=== PATIENT | male | born 1950 | race Caucasian/White ===

== ENCOUNTER 2021-07-01 14:18 | Inpatient (IN) | payer BC, MEDICARE ==
[2021-07-01] MEDS ORDERED: SODIUM CHLORIDE 0.9% 1,000 ML IV STA (14:50)
[2021-07-01 14:51] LABS: Glucose,Whole Blood 93 mg/dL (75-99)
--- NOTE | 2021-07-01 14:57 | ED ---
General Adult HPI - General Chief complaint: Neuro Symptoms/Deficit Stated complaint: Possible Stroke, Right Side and facial numbness Time Seen by Provider: 07/01/21 14:45 Source: patient, family, RN notes reviewed, old records reviewed Mode of arrival: wheelchair Limitations: no limitations - History of Present Illness Initial comments: This is a 70-year-old male who presents emergency Department with the complaint of right sided numbness in his arm and his leg patient states he also had some numbness in the left leg. Patient states the symptoms of almost completely resolved and he still feels as though the sensation in his right leg is a little off but he can feel all the light touch or painful stimuli. Patient denies any weakness. Patient denies any headache patient denies any visual disturbance. Patient denies any slurred speech. states he does not have any facial droop. Patient states symptoms started about 2:00 right after he got them on the lawn. Patient denies any recent fever chills or cough. Patient chest pain or palpitations. Patient denies any difficulty breathing first breath. - Related Data Home Medications Medication Instructions Recorded Confirmed No Known Home Medications 07/01/21 07/01/21 Allergies Allergy/AdvReac Type Severity Reaction Status Date / Time venom-honey bee Allergy Anaphylaxis Verified 07/01/21 17:01 [bee venom (honey bee)] Review of Systems ROS Statement: Those systems with pertinent positive or pertinent negative responses have been documented in the HPI. ROS Other: All systems not noted in ROS Statement are negative. Past Medical History Past Medical History: CVA/TIA Additional Past Medical History / Comment(s): kidney stones. TIA years ago History of Any Multi-Drug Resistant Organisms: None Reported Past Surgical History: Orthopedic Surgery Additional Past Surgical History / Comment(s): lola knee arthrosc.09-27-15 OPEN ILEOCOLECTOMY Past Anesthesia/Blood Transfusion Reactions: Motion Sickness Past Psychological History: No Psychological Hx Reported Smoking Status: Never smoker Past Alcohol Use History: Occasional Past Drug Use History: None Reported - Past Family History Mother Family Medical History: Cancer Additional Family Medical History / Comment(s): BREAST CANCER Father Family Medical History: Myocardial Infarction ([place]) Additional Family Medical History / Comment(s): MULTIPLE GA'S BEFORE AT AGE 40 General Exam - General Exam Comments Initial Comments: GENERAL: Patient is well-developed and well-nourished. Patient is nontoxic and well- hydrated and is in no acute distress. ENT: Neck is soft and supple. No significant lymphadenopathy is noted. Oropharynx is clear. Moist mucous membranes. Neck has full range of motion without e liciting any pain. EYES: The sclera were anicteric and conjunctiva were pink and moist. Extraocular movements were intact and pupils were equal round and reactive to light. Eyelids were unremarkable. PULMONARY: Unlabored respirations. Good breath sounds bilaterally. No audible rales rhonchi or wheezing was noted. CARDIOVASCULAR: There is a regular rate and rhythm without any murmurs gallops or rubs. ABDOMEN: Soft and nontender with normal bowel sounds. No palpable organomegaly was n oted. There is no palpable pulsatile mass. SKIN: Skin is clear with no lesions or rashes and otherwise unremarkable. NEUROLOGIC: Patient is alert and oriented x3. Cranial nerves II through XII are grossly intact. Motor and sensory are also intact. Patient any sensory deficit he just states his left leg feels a little different than normal but he can feel all light touch and all pain.. Normal speech, volume and content. Symmetrical smile. Patient's finger-nose testing bilaterally was normal. NIH is 0. MUSCULOSKELETAL: Normal extremities with adequate strength and full range of motion. No lower extremity swelling or edema. No calf tenderness. LYMPHATICS: No significant lymphadenopathy is noted PSYCHIATRIC: Normal psychiatric evaluation. Limitations: no limitations Course Vital Signs 07/01/21 07/01/21 07/01/21 14:33 15:33 16:51 Temperature 98.4 F Pulse Rate 90 89 79 Respiratory 16 16 16 Rate Blood Pressure 126/82 147/96 147/90 O2 Sat by Pulse 96 95 96 Oximetry 07/01/21 17:46 Temperature Pulse Rate 85 Respiratory 18 Rate Blood Pressure 146/93 O2 Sat by Pulse 96 Oximetry Medical Decision Making - Medical Decision Making EKG shows sinus rhythm at 84 bpm MI interval 190 QRS is 88 QT interval 355 QTC is 396. Patient's EKG shows no ST segment elevation or depression. Patient's symptoms completely resolve on the emergency department. Chest x-ray shows no acute abnormality. CT of the brain shows some chronic infarcts no acute infarcts noted. CT angiographic shows stenosis of the left carotid at 75% and right carotid to 50%. I spoke with Dr. Poe he agreed to admit the patient admitted the patient wrote admitting orders I consult the neurology - Lab Data Result diagrams: 07/01/21 14:51 07/01/21 14:51 Lab Results 07/01/21 07/01/21 07/01/21 Range/Units 14:42 14:51 14:51 WBC 7.3 (3.8-10.6) k/uL RBC 4.97 (4.30-5.90) m/uL Hgb 15.4 (13.0-17.5) gm/dL Hct 46.9 (39.0-53.0) % MCV 94.4 (80.0-100.0) fL MCH 30.9 (25.0-35.0) pg MCHC 32.8 (31.0-37.0) g/dL RDW 13.1 (11.5-15.5) % Plt Count 232 (150-450) k/uL MPV 8.0 Neutrophils % 67 % Lymphocytes % 18 % Monocytes % 7 % Eosinophils % 2 % Basophils % 1 % Neutrophils # 4.9 (1.3-7.7) k/uL Lymphocytes # 1.3 (1.0-4.8) k/uL Monocytes # 0.5 (0-1.0) k/uL Eosinophils # 0.1 (0-0.7) k/uL Basophils # 0.1 (0-0.2) k/uL PT 10.7 (9.0-12.0) sec INR 1.0 (<1.2) APTT 20.1 L (22.0-30.0) sec Sodium (137-145) mmol/L Potassium (3.5-5.1) mmol/L Chloride (98-107) mmol/L Carbon Dioxide (22-30) mmol/L Anion Gap mmol/L BUN (9-20) mg/dL Creatinine (0.66-1.25) mg/dL Est GFR (CKD-EPI)AfAm (>60 ml/min/1.73 sqM) Est GFR (CKD-EPI)NonAf (>60 ml/min/1.73 sqM) Glucose (74-99) mg/dL POC Glucose (mg/dL) 93 (75-99) mg/dL POC Glu [employer] Smiley[employer]ester Calcium (8.4-10.2) mg/dL Total Bilirubin (0.2-1.3) mg/dL AST (17-59) U/L ALT (4-49) U/L Alkaline Phosphatase (38-126) U/L Troponin I (0.000-0.034) ng/mL Total Protein (6.3-8.2) g/dL Albumin (3.5-5.0) g/dL 07/01/21 07/01/21 Range/Units 14:51 14:51 WBC (3.8-10.6) k/uL RBC (4.30-5.90) m/uL Hgb (13.0-17.5) gm/dL Hct (39.0-53.0) % MCV (80.0-100.0) fL MCH (25.0-35.0) pg MCHC (31.0-37.0) g/dL RDW (11.5-15.5) % Plt Count (150-450) k/uL MPV Neutrophils % % Lymphocytes % % Monocytes % % Eosinophils % % Basophils % % Neutrophils # (1.3-7.7) k/uL Lymphocytes # (1.0-4.8) k/uL Monocytes # (0-1.0) k/uL Eosinophils # (0-0.7) k/uL Basophils # (0-0.2) k/uL PT (9.0-12.0) sec INR (<1.2) APTT (22.0-30.0) sec Sodium 138 (137-145) mmol/L Potassium 5.0 (3.5-5.1) mmol/L Chloride 104 (98-107) mmol/L Carbon Dioxide 27 (22-30) mmol/L Anion Gap 7 mmol/L BUN 21 H (9-20) mg/dL Creatinine 0.80 (0.66-1.25) mg/dL Est GFR (CKD-EPI)AfAm >90 (>60 ml/min/1.73 sqM) Est GFR (CKD-EPI)NonAf >90 (>60 ml/min/1.73 sqM) Glucose 88 (74-99) mg/dL POC Glucose (mg/dL) (75-99) mg/dL POC Glu [employer] ID Calcium 9.2 (8.4-10.2) mg/dL Total Bilirubin 1.4 H (0.2-1.3) mg/dL AST 43 (17-59) U/L ALT 19 (4-49) U/L Alkaline Phosphatase 65 (38-126) U/L Troponin I 0.017 (0.000-0.034) ng/mL Total Protein 7.4 (6.3-8.2) g/dL Albumin 4.5 (3.5-5.0) g/dL Disposition Clinical Impression: Transient cerebral ischemia Disposition: ADMITTED IP TO THIS HOSP Referrals: Sukhdeep Poe MD [Primary Care Provider] - 1-2 days Time of Disposition: 18:23
[2021-07-01 15:14] LABS: ALT 19 U/L (4-49); AST 43 U/L (17-59); African American GFR (CKD) >90 (>60 ml/min/1.73 sqM); Albumin 4.5 g/dL (3.5-5.0); Alkaline Phosphatase 65 U/L (38-126); Anion Gap 7 mmol/L; Blood Urea Nitrogen 21 mg/dL (9-20); Calcium 9.2 mg/dL (8.4-10.2); Carbon Dioxide 27 mmol/L (22-30); Chloride 104 mmol/L (98-107); Glucose 88 mg/dL (74-99); Non-African American GFR(CKD) >90 (>60 ml/min/1.73 sqM); Sodium 138 mmol/L (137-145); Total Bilirubin 1.4 mg/dL (0.2-1.3); Total Protein 7.4 g/dL (6.3-8.2)
--- NOTE | 2021-07-01 15:27 | XR ---
EXAMINATION TYPE: XR chest 2V DATE OF EXAM: 07/01/2021 COMPARISON: Chest x-ray October 08, 2015 HISTORY: Altered mental status and weakness. TECHNIQUE: Frontal and lateral views of the chest are obtained. FINDINGS: Low lung volumes redemonstrated. Mild focal left basilar linear scarring. Right lung remai ns clear. Cardiac silhouette size upper limits of normal with atherosclerotic and ectatic aortic knob . Osseous structures are intact. IMPRESSION: Low lung volumes with mild left basilar linear scarring.
[2021-07-01 15:35] LABS: Prothrombin Time 10.7 sec (9.0-12.0)
[2021-07-01 15:36] LABS: Partial Thromboplastin Time 20.1 sec (22.0-30.0)
[2021-07-01 15:39] LABS: Basophils # (A) 0.1 k/uL (0-0.2); Basophils % (A) 1 %; Eosinophils # (A) 0.1 k/uL (0-0.7); Eosinophils % (A) 2 %; HCT 46.9 % (39.0-53.0); HGB 15.4 gm/dL (13.0-17.5); Lymphocytes # (A) 1.3 k/uL (1.0-4.8); Lymphocytes % (A) 18 %; MCH 30.9 pg (25.0-35.0); MCHC 32.8 g/dL (31.0-37.0); MCV 94.4 fL (80.0-100.0); Monocytes # (A) 0.5 k/uL (0-1.0); Monocytes % (A) 7 %; Neutrophils # (A) 4.9 k/uL (1.3-7.7); Neutrophils % (A) 67 %; Platelet Count 232 k/uL (150-450); RBC 4.97 m/uL (4.30-5.90); RDW 13.1 % (11.5-15.5); WBC 7.3 k/uL (3.8-10.6)
--- NOTE | 2021-07-01 16:38 | CT ---
EXAMINATION TYPE: CT brain wo con DATE OF EXAM: 07/01/2021 COMPARISON: None available HISTORY: CODE STROKE CT DLP: 1136.8 mGycm Automated exposure control for dose reduction was used. TECHNIQUE: CT scan of the brain is performed without IV contrast administration. FINDINGS: Brain volume loss changes, likely age-related. Bilateral cerebral white matter hypodensities, likely representing chronic microvascular ischemic changes. Scattered arterial atherosclerotic calcification s. Left cerebellar, right superior frontal and right medial parieto-occipital chronic cortical and subco rtical infarcts. No acute intracranial hemorrhage. No gross acute cortical infarct. No midline shift, herniation or ventriculomegaly. Unremarkable basal cisterns, sella and CP angles. No gross space-occupying lesion, vasogenic edema or mass effect. Unremarkable orbits. Mucosal thickening of the maxillary sinuses. Clear mastoid air cells. Unremarkab le calvarial bones. IMPRESSION: Brain volume loss changes, chronic ischemic changes and scattered chronic infarcts as detailed above. No acute intracranial hemorrhage or gross acute cortical infarct however a small acute or hyperacute infarct cannot be excluded by this CT scan. Further MRI with DWI assessment can be considered if cli nically required. Other findings as described above.
--- NOTE | 2021-07-01 17:29 | CT ---
EXAMINATION TYPE: CT angio head neck DATE OF EXAM: 07/01/2021 COMPARISON: None HISTORY: Numbness and weakness CT DLP: mGycm Automated exposure control for dose reduction was used. Images obtained from the aortic arch to the vertex of the brain without IV contrast Isovue 65 mL. FINDINGS: There is normal branching pattern of the great vessels on the aortic arch. There is arterial flow in both subclavian arteries. There is arterial flow in the common internal and external carotid arteries bilaterally. There is arterial flow in both vertebral arteries. There is significant plaque at the o rigin of the left internal carotid artery and approximately 75% stenosis. There appears to be also so me fusiform 50% stenosis of the mid portion of the left internal carotid artery at the angle of the m andible. There is moderate plaque formation at the right carotid artery bifurcation and approximately 50% sten osis stenosis at the origin of the right internal carotid artery. No dissection. There is a diminutiv e left vertebral artery. The basilar artery fills mostly from the right side. There is arterial flow in the anterior middle and posterior cerebral arteries bilaterally. There is n o mass effect. No evidence of intracranial aneurysm or neovascularity. There is normal enhancement of the venous sinuses. No evidence of intracranial hemodynamic arterial stenosis. IMPRESSION: No significant intracranial angiographic abnormality. Right occipital lobe infarct noted. There is approximate 75% stenosis at the origin left internal carotid artery and 50% stenosis origin right internal carotid artery due to plaque formation
[2021-07-01] MEDS ORDERED: ASPIRIN 325 MG TAB PO STA (18:38)
--- NOTE | 2021-07-01 20:28 | P.HPIM ---
History of Present Illness H&P Date: 07/01/21 Chief Complaint: TIA in the L MCA with right-sided numbness. HISTORY OF PRESENT ILLNESS: This is a 70-year-old male with a previous medical history significant for hypertension and hypertensive cardiovascular disease, hyperlipidemia, history of osteoarthritis of both knees status post arthroscopic knee surgeries, history of significant abdominal surgeries back in September 2015 when he went to have a possible CT-guided biopsy of a mass behind the duodenum that led to an open biopsy that was done by Dr. Watkins patient ended up with significant trouble with septic shock patient ended up getting shipped to [facility] where he underwent a total of 10 surgery initially 5 surgery that led to a big open wound in the abdomen that was treated conservatively followed by a skin graft surgery and then he ended up having a a temporary colostomy with an attempted reversal that led to a bowel perforation patient then ended up having 3 more surgery than he had a skin graft from of big scan dialysis 10th surgery back in 2017, during that time patient was hospitalized multiple times to [facility] with multiple diagnoses including line sepsis as well as septic shocks for different reasons, patient was treated with IV antibiotic as well as IV TPN for long period of time, I have not seen the patient for quite sometimes more than 4 years ago, patient presented to the emergency department at [facility] today after he was mowing the lawn outside for many hours and he sat down and all of a sudden developed to have a significant pain in the jaw associated with right arm numbness and right leg numbness, and then he developed to have significant involuntary movement of the right upper extremity right lower extremity patient ended up coming to the emergency department by his who drove him and had a computed tomography scan of the brain without contrast that did show evidence of multiple chronic infarcts in the left cerebellar right superior frontal right medial parieto- occipital region with cortical and subcortical infarcts without acute evidence of acute infarcts, this is due to possible embolic phenomenon therefore the patient underwent CTA of the head and neck that showed evidence of 75% stenosis of the left internal carotid artery and 50% stenosis of the right internal carotid artery patient was placed on aspirin 325 mg every day, he was started on atorvastatin 40 mg orally once every day, and patient will be admitted to the telemetry unit for evaluation, he'll also be having an Echocardiogram for evaluation of a embolic source such as a patent foramen ovale and/or aortic debris. REVIEW OF SYSTEMS: Constitutional: No documented fever, no chills, no night sweats. No weight change. No weakness, fatigue or lethargy. No daytime sleepiness. HEENT: No headache. No blurred vision or double vision, no loss of vision. No loss of Hearing, no ringing in the ears, no dizziness. No nasal drainage or co ngestion. No epistaxis. No sore throat. Lungs: No shortness of breath, no cough, no sputum production. No wheezing. Reports dyspnea with activity. Cardiovascular: No chest pain, no lower extremity edema. No palpitations. No paroxysmal nocturnal dyspnea. No orthopnea. No lightheadedness or dizziness. No syncopal episodes. Abdominal: Reports no abdominal pain. No nausea, vomiting. No diarrhea. No constipation. No bloody or tarry stools reports loss of appetite. Genitourinary: No dysuria, increased frequency, urgency. No urinary retention. Musculoskeletal: No myalgias. No muscle weakness, no gait dysfunction, no frequent falls. No back pain. No neck pain. Integumentary: No wounds, no lesions. No rash or pruritus. No unusual bruising. No change in hair or nails. Neurologic: No aphasia. No facial droop. No change in mentation. No head injury. No headache. No paralysis. Right sided procedure that has resolved by the time he came to the ER. Psychiatric: No depression. No anxiety. No mood swings. Endocrine: No abnormal blood sugars. No weight change. PAST MEDICAL HISTORY: Hypertension and hypertensive cardio vascular disease. Hyperlipidemia. Carotid artery disease. Multiple embolic infarcts Obesity. Multiple line sepsis. History of septic shocks. History of ischemic bowel. PAST SURGICAL HISTORY: 1. Bilateral arthroscopic knee surgery per 2. A total of 10 surgeries for ischemic bowel with perforation and colostomy placement and reversal followed by a pigskin graft placement 3. Multiple PIC line insertion and removal. SOCIAL HISTORY: patient denies a history of smoking, no history of drinking or drug use or abuse. Currently lives with his . FAMILY HISTORY: father at age of 40 after he committed suicide but he had a history of recurrent MIs that made him bedridden at a younger age, mother at age of 82 from metastatic breast cancer, patient has one brother ok, patient has 2 sister one is 66-year-old with a history of breast cancer, The other one is 64-year-old with history of diabetes mellitus type 2. Patient has one son who is 41-year-old with history of psoriasis. PHYSICAL EXAMINATION: General: 70-year-old male a not a bit in no apparent distress. HEENT: Head is atraumatic, normocephalic, pupils were equal round reactive to light and recommendation, extraocular muscle movement were intact, sclera nonicteric, conjunctivae were pale, mucous membranes of the mouth are somewhat dry. Neck: Supple, no JVP, decreased carotid upstroke bilaterally with left carotid bruit, no lymphadenopathy. Chest: Decreased breath sounds at the bases, few rhonchi, no expiratory wheezes, no chest wall tenderness, no intercostal retractions. Heart: First heart sound is normal, second heart sounds normal, there is no gallop or murmur. Abdomen: Soft, nontender, nondistended, multiples surgical scar, there is an area with a a pigskin graft that is very thin individual of the abdomen. Extremities: There is no edema no calf tenderness DP +2 bilaterally. Neurologic examination: Patient is awake alert and oriented X 3, cranial nerves II-12 appear grossly intact, muscle power were 5 out of 5 in upper extremities and 5 out of 5 in bilateral lower extremities, deep tendon reflexes normal bilaterally. ASSESSMENT AND PLAN: 1. TIA in the distribution of the left middle cerebral artery with right sided facial arm and lower extremity numbness. Patient will be started on aspirin 325 mg once every day, start the patient on atorvastatin 40 mg orally once every day, check the patient homocysteine level, check ESR, check lipid panel, keep LDL cholesterol 55-70, patient did have a CTA of the brain and neck head that showed evidence of 75% stenosis of the left internal carotid artery and 50% stenosis of the right internal carotid artery, patient had a computed tomography scan of the brain that did show numerous embolic infarcts in the left cerebellar right superior frontal and right medial parieto-occipital region, MRI of the brain with and without gadolinium is in order, neurology consultation, neuro check every 2 hours for the next 24 hours, echocardiogram and possible transesophageal echo care gram for evaluation of patent foramen ovale and other cardiac embolic source. 2 . Moderate carotid artery stenosis that is symptomatic. Consult vascular surgery Dr. Denis. 3. Hypertension and hypertensive cardiovascular disease. Start the patient on losartan 25 mg orally once every day. 4. Hyperlipidemia. Check lipid panel, start the patient on atorvastatin 40 mg orally once every day. 5. History of compensated abdominal surgery due to ischemic bowel full by bowel perforation and multiple bowel resections with colostomy placement and reversal ended up with a pigskin graft placement with Dr. Gotti at [facility]. 6. Osteoarthritis of both knees status post arthroscopic knee surgery. 7. DVT prophylaxis. Bilateral knee-high GARRETT hose, Lovenox 40 mg subcu Thursday every 24 hours, please avoid the abdomen. 8. GI prophylaxis. Protonix 40 mg orally once every day. 9. Admit to inpatient. Estimated length of stay 2 midnights. 10. Patient is full code. Past Medical History Past Medical History: CVA/TIA Additional Past Medical History / Comment(s): kidney stones. TIA years ago History of Any Multi-Drug Resistant Organisms: None Reported Past Surgical History: Orthopedic Surgery Additional Past Surgical History / Comment(s): lola knee arthrosc.09-27-15 OPEN ILEOCOLECTOMY Past Anesthesia/Blood Transfusion Reactions: Motion Sickness Past Psychological History: No Psychological Hx Reported Smoking Status: Never smoker Past Alcohol Use History: Occasional Past Drug Use History: None Reported - Past Family History Mother Family Medical History: Cancer Additional Family Medical History / Comment(s): BREAST CANCER Father Family Medical History: Myocardial Infarction ([place]) Additional Family Medical History / Comment(s): MULTIPLE NY'S BEFORE AT AGE 40 Medications and Allergies Home Medications Medication Instructions Recorded Confirmed Type No Known Home Medications 07/01/21 07/01/21 History Allergies Allergy/AdvReac Type Severity Reaction Status Date / Time venom-honey bee Allergy Anaphylaxis Verified 07/01/21 17:01 [bee venom (honey bee)] Physical Exam Vitals: Vital Signs Temp Pulse Resp BP Pulse Ox 07/01/21 19:36 98.1 F 72 20 148/95 98 07/01/21 17:46 85 18 146/93 96 07/01/21 16:51 79 16 147/90 96 07/01/21 15:33 89 16 147/96 95 07/01/21 14:33 98.4 F 90 16 126/82 96 Intake and Output 07/01/21 07/01/21 07/01/21 06:59 14:59 22:59 Other: Weight 99.79 kg Results CBC & Chem 7: 05/09/22 14:51 07/01/21 14:51 Labs: Abnormal Lab Results - Last 24 Hours (Table) 07/01/21 07/01/21 Range/Units 14:51 14:51 APTT 20.1 L (22.0-30.0) sec BUN 21 H (9-20) mg/dL Total Bilirubin 1.4 H (0.2-1.3) mg/dL
[2021-07-01] MEDS: LOSARTAN 25 MG TAB PO SCH (22:31)
[2021-07-01] MEDS: ATORVASTATIN 40 MG TAB PO SCH (22:31)
[2021-07-02] MEDS: ENOXAPARIN 40 MG/0.4 ML SYRINGE SQ SCH (07:17)
[2021-07-02] MEDS: LOSARTAN 25 MG TAB PO SCH (07:17)
[2021-07-02] MEDS ORDERED: ASPIRIN 325 MG TAB PO SCH (09:00)
[2021-07-02 09:40] LABS: Basophils # (A) 0.05 X 10*3/uL (0.00-0.10); Basophils % (A) 0.8 %; Eosinophils # (A) 0.17 X 10*3/uL (0.04-0.35); Eosinophils % (A) 2.7 %; HCT 47.6 % (39.6-50.0); HGB 15.6 g/dL (13.0-17.0); Immature Grans, Automated 0.6 %; Lymphocytes # (A) 1.51 X 10*3/uL (0.90-5.00); Lymphocytes % (A) 23.8 %; MCH 30.5 pg (27.0-32.0); MCHC 32.8 g/dL (32.0-37.0); Mean Platelet Volume 10.3 fL (9.5-12.2); Monocytes # (A) 0.76 X 10*3/uL (0.20-1.00); NRBC Per 100 WBC 0 /100 WBCS (0.0-0.0); Neutrophils # (A) 3.82 X 10*3/uL (1.80-7.70); Neutrophils % (A) 60.1 %; Platelet Count 241 X 10*3/uL (140-440); RBC 5.12 X 10*6/uL (4.40-5.60); RDW 12.8 % (11.5-14.5); WBC 6.35 X 10*3/uL (4.50-10.00)
[2021-07-02 10:03] LABS: Erythrocyte Sedimentation Rate 9 mm/Hr (0-20)
[2021-07-02] MEDS: CLOPIDOGREL 75 MG TAB PO SCH (10:14)
--- NOTE | 2021-07-02 10:50 | CA ---
Transthoracic Echo Report Name: Mauricio Singh Age: 70 Gender: M : 1950 Exam Date: 07/02/2021 09:15 Exam Location: [facility] Ht (in): 70 Wt (lb): 220 Ordering Physician: Sukhdeep Poe MD Attending/Referring Phys: Electronics Technology Instructor Alexia Valerio RDCS Procedure CPT: Indications: TIA/ Embolic infarcts Cardiac Hx: Technical Quality: Fair Contrast 1: Total Dose (mL): Contrast 2: Total Dose (mL): MEASUREMENTS (Male / Female) Normal Values 2D ECHO LV Diastolic Diameter PLAX 4.3 cm 4.2 - 5.9 / 3.9 - 5.3 cm LV Systolic Diameter PLAX 1.5 cm IVS Diastolic Thickness 1.3 cm 0.6 - 1.0 / 0.6 - 0.9 cm LVPW Diastolic Thickness 1.1 cm 0.6 - 1.0 / 0.6 - 0.9 cm LV Relative Wall Thickness 0.6 M-MODE Aortic Root Diameter MM 3.6 cm LA Systolic Diameter MM 2.2 cm LA Ao Ratio MM 0.6 MV E Point Septal Separation 0.6 cm AV Cusp Separation MM 2.2 cm DOPPLER AV Peak Velocity 85.3 cm/s AV Peak Gradient 2.9 mmHg MV Area PHT 3.6 cm??? MR Peak Velocity 86.1 cm/s MR Peak Gradient 3.0 mmHg Mitral E Point Velocity 53.9 cm/s Mitral A Point Velocity 65.0 cm/s Mitral E to A Ratio 0.8 MV Deceleration Time 209.7 ms TR Peak Velocity 71.4 cm/s TR Peak Gradient 2.0 mmHg Right Ventricular Systolic Press 7.0 mmHg FINDINGS Left Ventricle Mildly increased septal wall thickness. Left ventricular cavity size normal. Left ventricular ejection fraction is estimated at 55-60 %. Right Ventricle The right ventricle is normal in size and function. Right Atrium The right atrium is normal in size. Left Atrium The left atrium is normal in size. Mitral Valve Structurally normal mitral valve without significant stenosis or prolapse. There is a trace mitral regurgitation. Aortic Valve Structurally normal aortic valve without significant sclerosis or stenosis. There is no aortic regurgitation. Tricuspid Valve Structurally normal tricuspid valve without significant stenosis. Pulmonary artery systolic pressure is normal. Trace tricuspid regurgitation. Pulmonic Valve Structurally normal pulmonic valve without significant stenosis. There is no pulmonic regurgitation. Pericardium Normal pericardium without effusion. Aorta Normal aortic root dimension. CONCLUSIONS Normal LV systolic function Previewed by: Dr. Jose Alejo MD (Electronically Signed) Final Date: 02 Jul 2021 10:49
--- NOTE | 2021-07-02 10:52 | P.GSCN ---
History of Present Illness Consult date: 07/02/21 Reason for Consult: Carotid Stenosis Requesting physician: Sukhdeep Poe History of present illness: This is a pleasant 70-year-old male who was out cutting his grass yesterday and when he came into the house causing the pain and numbness in his jaw that went down his right arm in that he started having involuntary movement of his right upper extremity. Then he felt that he had numbness and tingling down his right leg and then his left. He denied any weakness, any slurred speech, vision loss, or memory impairment. He has a past medical history of TIA, hypertension, cardiovascular disease, hyperlipidemia, history of breath arthritis and multiple abdominal surgeries. He denies any focal deficits at this time. He states that once he got to the hospital and he sat in a wheelchair his symptoms resolved. He is denying any shortness of breath or chest pain. He did state that for 2 years ago when he was in for one of his abdominal surgeries he was diagnosed with atrial fibrillation at that time. He denies any follow-up with cardiology since then. Brain CT impression: Brain volume loss changes, chronic ischemic changes and scattered chronic infarcts. No acute intracranial hemorrhage or gross acute c ortical infarct however a spinal acute or hyperacute infarct cannot be excluded by this computed tomography scan. CT angiogram head and neck impression: There is approximate 75% stenosis at the origin of left carotid artery and 50% stenosis origin right internal carotid artery due to plaque formation. Review of Systems - Constitutional Constitutional Comment(s): A 14 point review of systems is completed all pertinent positives and negatives as stated in the HPI. Past Medical History Past Medical History: CVA/TIA Additional Past Medical History / Comment(s): kidney stones. TIA years ago History of Any Multi-Drug Resistant Organisms: None Reported Past Surgical History: Orthopedic Surgery Additional Past Surgical History / Comment(s): lola knee arthrosc.16 OPEN ILEOCOLECTOMY Past Anesthesia/Blood Transfusion Reactions: No Reported Reaction Past Psychological History: No Psychological Hx Reported Additional Psychological History / Comment(s): . Lives in the family home with his . Retired. No experience. No international travel. No significant alcohol or recreational drug use. No animal exposures Smoking Status: Former smoker Past Alcohol Use History: Occasional Additional Past Alcohol Use History / Comment(s): SMOKED FROM AGE 15 TO 18 THEN QUIT Past Drug Use History: None Reported - Past Family History Mother Family Medical History: Cancer Additional Family Medical History / Comment(s): BREAST CANCER Father Family Medical History: Myocardial Infarction ([place]) Additional Family Medical History / Comment(s): MULTIPLE SC'S BEFORE AT AGE 40 Medications and Allergies Home Medications Medication Instructions Recorded Confirmed Type No Known Home Medications 07/01/21 07/01/21 History Allergies Allergy/AdvReac Type Severity Reaction Status Date / Time venom-honey bee Allergy Anaphylaxis Verified 07/01/21 17:01 [bee venom (honey bee)] Surgical - Exam Vital Signs Temp Pulse Resp BP Pulse Ox 98.4 F 90 16 126/82 96 07/01/21 14:33 07/01/21 14:33 07/01/21 14:33 07/01/21 14:33 07/01/21 14:33 General appearance: The patient is alert, oriented, appears in no acute di stress. HET: Head is normocephalic and atraumatic. Pupils are equal and reactive. Neck: Supple without lymphadenopathy. Trachea midline. No audible carotid bruit. Heart: S1 S2. Regular rate and rhythm. Lungs: Clear to auscultation bilaterally. Abdomen: Soft, nontender, nondistended. Extremities: Normal skin color and turgor. No cyanosis, rash, ulceration, clubbing, or edema. Radial and pedal pulses are 2/4 bilaterally. Neurological: No focal deficits. Strength and sensation are grossly intact. Results - Labs 07/02/21 06:06 07/01/21 14:51 Abnormal Lab Results - Last 24 Hours (Table) 07/01/21 07/01/21 Range/Units 14:51 14:51 APTT 20.1 L (22.0-30.0) sec BUN 21 H (9-20) mg/dL Total Bilirubin 1.4 H (0.2-1.3) mg/dL Diabetes panel 07/01/21 Range/Units 14:51 Sodium 138 (137-145) mmol/L Potassium 5.0 (3.5-5.1) mmol/L Chloride 104 (98-107) mmol/L Carbon Dioxide 27 (22-30) mmol/L BUN 21 H (9-20) mg/dL Creatinine 0.80 (0.66-1.25) mg/dL Glucose 88 (74-99) mg/dL Calcium 9.2 (8.4-10.2) mg/dL AST 43 (17-59) U/L ALT 19 (4-49) U/L Alkaline Phosphatase 65 (38-126) U/L Total Protein 7.4 (6.3-8.2) g/dL Albumin 4.5 (3.5-5.0) g/dL Calcium panel 07/01/21 Range/Units 14:51 Calcium 9.2 (8.4-10.2) mg/dL Albumin 4.5 (3.5-5.0) g/dL Pituitary panel 07/01/21 Range/Units 14:51 Sodium 138 (137-145) mmol/L Potassium 5.0 (3.5-5.1) mmol/L Chloride 104 (98-107) mmol/L Carbon Dioxide 27 (22-30) mmol/L BUN 21 H (9-20) mg/dL Creatinine 0.80 (0.66-1.25) mg/dL Glucose 88 (74-99) mg/dL Calcium 9.2 (8.4-10.2) mg/dL Adrenal panel 07/01/21 Range/Units 14:51 Sodium 138 (137-145) mmol/L Potassium 5.0 (3.5-5.1) mmol/L Chloride 104 (98-107) mmol/L Carbon Dioxide 27 (22-30) mmol/L BUN 21 H (9-20) mg/dL Creatinine 0.80 (0.66-1.25) mg/dL Glucose 88 (74-99) mg/dL Calcium 9.2 (8.4-10.2) mg/dL Total Bilirubin 1.4 H (0.2-1.3) mg/dL AST 43 (17-59) U/L ALT 19 (4-49) U/L Alkaline Phosphatase 65 (38-126) U/L Total Protein 7.4 (6.3-8.2) g/dL Albumin 4.5 (3.5-5.0) g/dL - Imaging Comments: Brain CT impression: Brain volume loss changes, chronic ischemic changes and scattered chronic infarcts. No acute intracranial hemorrhage or gross acute cortical infarct however a spinal acute or hyperacute infarct cannot be excluded by this computed tomography scan. CT angiogram head and neck impression: There is approximate 75% stenosis at the origin of left carotid artery and 50% stenosis origin right internal carotid artery due to plaque formation. Assessment and Plan Assessment: 1. Left ICA stenosis, approximate 75% per CT angiogram head and neck 2. Right occipital lobe infarct per CTA head, chronic ischemic changes and scattered chronic infarcts per brain CAT scan, likely embolic 3. Right sided numbness and tingling with weakness now resolved 4. History of hypertension 5. Hyperlipidemia 6. History of cardiovascular disease Plan: 1. Continue aspirin and Lipitor, likely will add Plavix if okay with neurology 2. Continue workup with neurology, appreciate their recommendations 3. Agree with cardiology consult with history of atrial fibrillation during last hospitalization 4. Carotid duplex ordered 5. Discussed with patient recommend outpatient follow-up and will further discuss surgical intervention for left ICA stenosis. Likely carotid e ndarterectomy. Thank you for this consultation, we will continue to follow. The impression and plan of care has been dictated as directed. I performed a history and examination of this patient, discussed the same with the dictator. I agree with the dictator's note ,documented as a scribe. Any additional findings or plans will be noted.
--- NOTE | 2021-07-02 11:07 | P.CNNES ---
History of Present Illness Consult date: 07/02/21 Requesting physician: Harsha Gonzalez Reason for Consult: TIA History of Present Illness: This is a 70-year-old gentleman with medical history of TIA who presented to the emergency department on 07/01/2021 for numbness. Patient stated that he has numbness over his right face, arm and leg and time of onset was the started around 2 PM on 07/01/2021. He felt questionable left lower extremity. He feels his symptoms has resolved within <30 minutes. He denies of any weakness and visual disturbance, slurred speech difficulty getting his words out. Patient is not on antiplatelets or anticoagulation. Of note patient stated he had a TIA in the past where he had right sided numbness, right facial droop and could not remembers exactly. He stated in 2015 he was having GI issues and came to our facility and had general surgery by Dr. Watkins and had compliction and result was transferred to [facility]. And at [facility] he was found to be in A-fib and was told due to infection. He denies of tobacco use or illicit drug use. Socially drinks alcohol. Workup in the hospital consisted of: CT of the head is reported as brain volume loss changes, chronic ischemic changes and scattered chronic infarct. No acute intracranial hemorrhage or gross acute cortical infarct however a small acute or hyperacute infarct cannot be excluded by this computed tomography scan. I personally reviewed the CT of the head and there is no acute or subacute ischemia but has encephalomalacia over the right occipital and left cerebellar. CT angiography of the head and neck was reported as no significant intercranial and angiographic abnormality. Right occipital lobe infarct noted. There is approximately 75% stenosis at the origin of left internal carotid artery and 50% stenosis origin of the right internal carotid artery due to plaque formation. EKG is reported as sinus rhythm. Nonspecific T wave abnormality. Borderline EKG. Review of Systems Review of system: The 12 point system was reviewed and apparent positive and negative per HPI. Past Medical History Past Medical History: CVA/TIA Additional Past Medical History / Comment(s): kidney stones. TIA years ago History of Any Multi-Drug Resistant Organisms: None Reported Past Surgical History: Orthopedic Surgery Additional Past Surgical History / Comment(s): lola knee arthrosc.09-27-15 OPEN ILEOCOLECTOMY Past Anesthesia/Blood Transfusion Reactions: No Reported Reaction Past Psychological History: No Psychological Hx Reported Additional Psychological History / Comment(s): . Lives in the family home with his . Retired. No experience. No international travel. No significant alcohol or recreational drug use. No animal exposures Smoking Status: Former smoker Past Alcohol Use History: Occasional Additional Past Alcohol Use History / Comment(s): SMOKED FROM AGE 15 TO 18 THEN QUIT Past Drug Use History: None Reported - Past Family History Mother Family Medical History: Cancer Additional Family Medical History / Comment(s): BREAST CANCER Father Family Medical History: Myocardial Infarction ([place]) Additional Family Medical History / Comment(s): MULTIPLE HI'S BEFORE AT AGE 40 Medications and Allergies Home Medications Medication Instructions Recorded Confirmed Type No Known Home Medications 07/01/21 07/01/21 History Allergies Allergy/AdvReac Type Severity Reaction Status Date / Time venom-honey bee Allergy Anaphylaxis Verified 07/01/21 17:01 [bee venom (honey bee)] Physical Examination - Vital Signs Vital Signs: Vital Signs Temp Pulse Pulse Resp BP BP Pulse Ox 07/02/21 06:50 97.7 F 71 18 134/74 96 07/02/21 02:30 97.7 F 61 18 131/78 97 07/01/21 22:15 98.3 F 69 18 148/87 96 07/01/21 19:36 98.1 F 72 20 148/95 98 07/01/21 17:46 85 18 146/93 96 07/01/21 16:51 79 16 147/90 96 07/01/21 15:33 89 16 147/96 95 07/01/21 14:33 98.4 F 90 16 126/82 96 Intake and Output 07/01/21 07/02/21 07/02/21 22:59 06:59 14:59 Other: Voiding Method Toilet # Voids 1 1 Weight 99.79 kg GENERAL: The patient is lying in bed and is not in acute distress. CHEST: The heart rate is regular rate rhythm. No murmurs to auscultation. No carotid bruit bilaterally. LUNG: Clear to auscultation bilaterally no wheezing noted throughout. Not labored breathing. ABDOMEN/GI: Bowel sounds present in all 4 quadrants. No tenderness to palpation throughout. NEUROLOGICAL: Higher mental function: The patient is awake, alert, oriented to self, place and time. Patient is following commands. No aphasia and no neglect. Cranial nerves: The pupils are round, equal and reactive to light and accommodation. Visual bhatt is bilateral left lower quadrant anopsia (old). . Extraocular movement is intact no nystagmus is noted. Facial sensation is normal to touch throughout. The facial strength is normal throughout. Hearing is normal bilaterally to hand rub. Tongue is midline and moved [id number] without any difficulty. No dysarthria is noted. Shoulder shrug is normal bilaterally. Motor: The strength is 5 over 5 throughout. Normal tone and bulk. Cerebellum: Normal finger to nose heel to vail bilaterally. Sensation: Sensation is normal to touch throughout. Reflexes (right/left): 2+ throughout. Plantars are downgoing bilaterally. Results - Laboratory Findings CBC and BMP: 07/02/21 06:06 07/01/21 14:51 Abnormal Lab Findings: Abnormal Labs 07/01/21 07/01/21 14:51 14:51 APTT 20.1 L BUN 21 H Total Bilirubin 1.4 H Assessment and Plan Assessment: Transient Numbness over the right upper and lower extremity and left lower extremity: Likely Transient Ischemic attack Carotid stenosis (left ICA 75% and right ICA 50% stenosis per CTA) History of stroke (encephalomalacia over the right occipital and left cerebellar) History of transient Atrial fibrillation in 2016 (was told due to underlying infection according to patient) Plan: Patient was started on aspirin 325mg daily by ED. I lower the aspirin from 325 to an 81mg and started the patient in addition to 75 mg daily (not on antiplatelets or anticoauglation). Patient is started on Lipitor 40mg qhs. Ordered MRI of the brain. 2-D echo, carotid duplex, lipid panel is ordered and is pending Vascular surgery team is consulted by the primary team Cardiology team is consulted. Patient had transient A-fib in 2016 (was told due to infection?) PT OT and PHY THERAPIST are consulted Continue neuro checks Placed the patient on cardiac monitoring Primary team ordered vitamin B12, ESR, folate, homocystine level and are pending. For DVT prophylaxis the patient is on Lovenox The plan is discussed with the patient and his nurse. Thank you for the consultation. Jeff Douglass M.D. Neuro-hospitalist Time with Patient: Greater than 30
--- NOTE | 2021-07-02 11:44 | US ---
EXAMINATION TYPE: US carotid duplex BILAT DATE OF EXAM: 07/02/2021 COMPARISON: NONE CLINICAL HISTORY: right occipital lobe infarct. right side numbness EXAM MEASUREMENTS: RIGHT: Peak Systolic Velocity (PSV) cm/sec ----- Right CCA: 83.2 ----- Right ICA: 117 ----- Right ECA: 125 ICA/CCA ratio: 1.4 RIGHT: End Diastole cm/sec ----- Right CCA: 14.9 ----- Right ICA: 26 ----- Right ECA: 11 LEFT: Peak Systolic Velocity (PSV) cm/sec ----- Left CCA: 74.1 ----- Left ICA: 118 ----- Left ECA: 125 ICA/CCA ratio: 1.6 LEFT: End Diastole cm/sec ----- Left CCA: 12.3 ----- Left ICA: 41.6 ----- Left ECA: 13 VERTEBRALS (direction of flow): Right Vertebral: Antegrade Left Vertebral: Antegrade Rhythm: Normal No significant stenosis seen IMPRESSION: 1. Atherosclerotic plaque with no significant hemodynamic stenosis. Criteria for Assigning % of Stenosis / Diameter reduction (Estimation based on the indirect measurements of the internal carotid artery velocities (ICA PSV). 1. Normal (no stenosis)=ICA PSV < 125 cm/s: ratio < 2.0: ICA EDV<40 cm/s. 2. Less than 50% stenosis=ICA PSV < 125 cm/s: ratio < 2.0: ICA EDV<40 cm/s. 3. 50 to 69% stenosis=ICA PSV of 125 to 230 cm/s: ration 2.0 ? 4.0: ICA EDV 40-100 cm/s. 4. Greater than 70% stenosis to near occlusion= ICA PSV > 230 cm/s: ratio > 4.0: ICA EDV > 100 cm/s. 5. Near occlusion= ICA PSV velocities may be low or undetectable: variable ratio and ICA EDV. 6. Total occlusion=unable to detect flow.
[2021-07-02 12:12] LABS: ALT 19 U/L (10-49); AST 25 U/L (14-35); African American GFR (CKD) 105.6 (60.0-200.0); Albumin 4.6 g/dL (3.8-4.9); Alkaline Phosphatase 60 U/L (41-126); BUN/Creat Ratio 19.38 Ratio (12.00-20.00); Blood Urea Nitrogen 15.5 mg/dL (9.0-27.0); Calcium 9.4 mg/dL (8.7-10.3); Chloride 102 mmol/L (96-109); Chol/HDL Ratio 3.85 Ratio; Glucose 101 mg/dL (70-110); LDL Cholesterol,Calculated 81.3 mg/dL (0.0-131.0); Non-African American GFR(CKD) 91.1 (60.0-200.0); Potassium 4.5 mmol/L (3.5-5.5); Sodium 140 mmol/L (135-145); Total Protein 6.6 g/dL (6.2-8.2)
--- NOTE | 2021-07-02 12:56 | P.CRDCN ---
History of Present Illness Consult date: 07/02/21 History of present illness: HISTORY OF PRESENT ILLNESS: This is a 70-year-old male with a past medical history multiple abdominal surgeries following complications from a biopsy. Patient does not follow with a natural resource technician. We have been asked to see the patient in consultation for TIA. Patient examined at the bedside. Patient presented to the hospital with a chief complaint of numbness on the right side of his face and right-sided weakness. His symptoms have since resolved. He denies any chest pain or pressure. Denies shortness of breath. Denies palpitations. Patient states he was hospitalized a few years ago at [facility] secondary to complications from an abdominal surgery and had sepsis. The patient initially thought he had an episode of atrial fibrillation at that time. However his is at the bedside and states she was told the patient had an episode of ventricular fibrillation. She states she remembers two doctors running into the patient's room and was told he was in V. fib but it only lasted for about 15 seconds and he converted on his own. The patient is not prescribed anticoagulation on an outpatient basis. * EKG reveals sinus mechanism with no signs of acute ischemia * Chest xray low lung volumes with mild left basilar linear scarring * Echocardiogram completed revealing ejection fraction 55-60%, trace MR, and trace TR * CT angios head and neck revealed right occipital lobe infarct noted. Approximate 75% stenosis of the left internal carotid artery and 50% stenosis of the right internal carotid artery. * Laboratory data: WBC 6.35. Hemoglobin 15.6. Platelet count 241. Sodium 138. Potassium 5.0. BUN 21. Creatinine 0.8. Troponin negative 1. * Current home cardiac medications include none REVIEW OF SYSTEMS: At the time of my exam: CONSTITUTIONAL: Denies fever or chills. HEENT: Denies blurred vision, vision changes, or eye pain. Denies hemoptysis CARDIOVASCULAR: Denies chest pain. Denies orthopnea. Denies PND. Denies palpitations RESPIRATORY: Denies shortness of breath. GASTROINTESTINAL: Denies abdominal pain. Denies nausea or vomiting. HEMATOLOGIC: Denies bleeding disorders. GENITOURINARY: Denies any blood in urine. SKIN: Denies pruitis. Denies rash. PHYSICAL EXAM: VITAL SIGNS: Reviewed. GENERAL: Well-developed in no acute distress. HEENT: Head is normocephalic. Pupils are equal, round. Sclerae anicteric. Mucous membranes of the mouth are moist. Neck supple. No JVD or thyromegaly LUNGS: Respirations even and unlabored. Lungs essentially clear to auscultation bilaterally. HEART: Regular rate and rhythm. S1 and S2 heard. ABDOMEN: Soft. Nondistended. Nontender. EXTREMITIES: Normal range of motion. No clubbing or cyanosis. Peripheral pulses intact. No lower extremity edema NEUROLOGIC: Awake and alert. Oriented x 3. ASSESSMENT: Suspected TIA Carotid stenosis History of atrial fibrillation versus ventricular fibrillation, per patient and family PLAN: 2D echo obtained and reviewed Continue telemetry monitoring Obtain records from previous hospitalization at outside facility to see if patient has a documented history of atrial fibrillation Neurology and vascular surgery following Patient will receive an event monitor at the time of discharge Further recommendations pending patient course Nurse practitioner note has been reviewed by physician. Signing provider agrees with the documented findings, assessment, and plan of care. Past Medical History Past Medical History: CVA/TIA Additional Past Medical History / Comment(s): kidney stones. TIA years ago History of Any Multi-Drug Resistant Organisms: None Reported Past Surgical History: Orthopedic Surgery Additional Past Surgical History / Comment(s): olla knee arthrosc.09-27-15 OPEN ILEOCOLECTOMY Past Anesthesia/Blood Transfusion Reactions: No Reported Reaction Past Psychological History: No Psychological Hx Reported Additional Psychological History / Comment(s): . Lives in the family home with his . Retired. No experience. No international travel. No significant alcohol or recreational drug use. No animal exposures Smoking Status: Former smoker Past Alcohol Use History: Occasional Additional Past Alcohol Use History / Comment(s): SMOKED FROM AGE 15 TO 18 THEN QUIT Past Drug Use History: None Reported - Past Family History Mother Family Medical History: Cancer Additional Family Medical History / Comment(s): BREAST CANCER Father Family Medical History: Myocardial Infarction ([place]) Additional Family Medical History / Comment(s): MULTIPLE NE'S BEFORE AT AGE 40 Medications and Allergies Home Medications Medication Instructions Recorded Confirmed Type No Known Home Medications 07/01/21 07/01/21 History Allergies Allergy/AdvReac Type Severity Reaction Status Date / Time venom-honey bee Allergy Anaphylaxis Verified 07/01/21 17:01 [bee venom (honey bee)] Physical Exam Vitals: Vital Signs Temp Pulse Pulse Resp BP BP Pulse Ox 07/02/21 06:50 97.7 F 71 18 134/74 96 07/02/21 02:30 97.7 F 61 18 131/78 97 07/01/21 22:15 98.3 F 69 18 148/87 96 07/01/21 19:36 98.1 F 72 20 148/95 98 07/01/21 17:46 85 18 146/93 96 07/01/21 16:51 79 16 147/90 96 07/01/21 15:33 89 16 147/96 95 07/01/21 14:33 98.4 F 90 16 126/82 96 Intake and Output 07/01/21 07/02/21 07/02/21 22:59 06:59 14:59 Other: Voiding Method Toilet # Voids 1 1 Weight 99.79 kg Results 07/02/21 06:06 07/02/21 06:06 Cardiac Enzymes 07/01/21 07/01/21 Range/Units 14:51 14:51 AST 43 (17-59) U/L Troponin I 0.017 (0.000-0.034) ng/mL Coagulation 07/01/21 Range/Units 14:51 PT 10.7 (9.0-12.0) sec APTT 20.1 L (22.0-30.0) sec CBC 07/01/21 07/02/21 Range/Units 14:51 06:06 WBC 7.3 6.35 (3.8-10.6) k/uL RBC 4.97 5.12 (4.30-5.90) m/uL Hgb 15.4 15.6 (13.0-17.5) gm/dL Hct 46.9 47.6 (39.0-53.0) % Plt Count 232 241 (150-450) k/uL Comprehensive Metabolic Panel 07/01/21 Range/Units 14:51 Sodium 138 (137-145) mmol/L Potassium 5.0 (3.5-5.1) mmol/L Chloride 104 (98-107) mmol/L Carbon Dioxide 27 (22-30) mmol/L BUN 21 H (9-20) mg/dL Creatinine 0.80 (0.66-1.25) mg/dL Glucose 88 (74-99) mg/dL Calcium 9.2 (8.4-10.2) mg/dL AST 43 (17-59) U/L ALT 19 (4-49) U/L Alkaline Phosphatase 65 (38-126) U/L Total Protein 7.4 (6.3-8.2) g/dL Albumin 4.5 (3.5-5.0) g/dL Current Medications Generic Name Dose Route Start Last Admin Trade Name Freq PRN Reason Stop Dose Admin Aspirin 81 mg 07/03/21 09:00 Aspirin 81 Mg PO DAILY [facility] Atorvastatin Calcium 40 mg 07/01/21 21:00 07/01/21 22:31 Atorvastatin 40 Mg Tab PO 40 mg HS YUE Administration Clopidogrel Bisulfate 75 mg 07/02/21 09:45 07/02/21 10:14 Clopidogrel 75 Mg Tab PO 75 mg DAILY YUE Administration Enoxaparin Sodium 40 mg 07/02/21 09:00 07/02/21 07:17 Enoxaparin 40 Mg/0.4 Ml Syringe SQ 40 mg DAILY YUE Administration Losartan Potassium 25 mg 07/01/21 20:45 07/02/21 07:17 Losartan 25 Mg Tab PO 25 mg DAILY YUE Administration Intake and Output 07/01/21 07/02/21 07/02/21 22:59 06:59 14:59 Other: Voiding Method Toilet # Voids 1 1 Weight 99.79 kg 07/02/21 06:06 07/01/21 14:51
--- NOTE | 2021-07-02 13:28 | P.DS ---
Providers Date of admission: 07/02/21 11:55 Expected date of discharge: 07/03/21 Attending physician: Sukhdeep Poe Consults: 07/01/21 18:40 Consult Physician Routine Consulting Provider: Jeff Douglass Consult Reason/Comments: TIA Do you want consulting provider notified?: Yes 07/01/21 20:30 Consult Physician Routine Consulting Provider: Froilan Denis Consult Reason/Comments: Carotid stenosis/ TIA Do you want consulting provider notified?: Yes 07/02/21 10:31 Consult Physician Routine Consulting Provider: Jose Alejo Consult Reason/Comments: tia Do you want consulting provider notified?: Yes [facility] Course: HISTORY OF PRESENT ILLNESS: This is a 70-year-old male with a previous medical history significant for hypertension and hypertensive cardiovascular disease, hyperlipidemia, history of osteoarthritis of both knees status post arthroscopic knee surgeries, history of significant abdominal surgeries back in September 2015 when he went to have a possible CT-guided biopsy of a mass behind the duodenum that led to an open biopsy that was done by Dr. Watkins patient ended up with significant trouble with septic shock patient ended up getting shipped to [facility] where he underwent a total of 10 surgery initially 5 surgery that led to a big open wound in the abdomen that was treated conservatively followed by a skin graft surgery and then he ended up having a a temporary colostomy with an attempted reversal that led to a bowel perforation patient then ended up having 3 more surgery than he had a skin graft from of big scan dialysis 10th surgery back in 2017, during that time patient was hospitalized multiple times to [facility] with multiple diagnoses including line sepsis as well as septic shocks for different reasons, patient was treated with IV antibiotic as well as IV TPN for long period of time, I have not seen the patient for quite sometimes more than 4 years ago, patient presented to the emergency department at [facility] today after he was mowing the lawn outside for many hours and he sat down and all of a sudden developed to have a significant pain in the jaw associated with right arm numbness and right leg numbness, and then he developed to have significant involuntary movement of the right upper extremity right lower extremity patient ended up coming to the emergency department by his who drove him and had a computed tomography scan of the brain without contrast that did show evidence of multiple chronic infarcts in the left cerebellar right superior frontal right medial parieto- occipital region with cortical and subcortical infarcts without acute evidence of acute infarcts, this is due to possible embolic phenomenon therefore the patient underwent CTA of the head and neck that showed evidence of 75% stenosis of the left internal carotid artery and 50% stenosis of the right internal carotid artery patient was placed on aspirin 325 mg every day, he was started on atorvastatin 40 mg orally once every day, and patient will be admitted to the telemetry unit for evaluation, he'll also be having an Echocardiogram for evaluation of a embolic source such as a patent foramen ovale and/or aortic debris. 07/02: Patient has been seen by neurology and MRI of the brain has been ordered which is scheduled for late today. Patient has been seen by vascular surgery with plan to follow-up in the office and possible surgical intervention in the next 2 weeks or so. Cardiology has evaluated the patient and he will be scheduled for event monitor at the time of discharge. Patient's is at bedside and states the patient has no history of atrial fibrillation but does have history of ventricular fibrillation. Patient denies any further symptoms. Anticipate discharge home tomorrow. Homocysteine elevated at 14.5, folate 12.1, triglycerides 197, cholesterol 163, LDL 81, HDL 42. Carotid ultrasound reveals atherosclerotic plaque with no significant hemodynamic stenosis. Echocardiogram reveals normal LV systolic function, trace tricuspid regurgitation, trace mitral regurgitation 07/03: Patient underwent MRI of the brain reported by neurology as small left occipital and left frontal CVA. Patient had a 30 day event monitor prior to discharge. Recommendations from neurology is continue aspirin and Plavix for 21 days and then continue aspirin only. Patient is intolerant of Lipitor and this was discontinued. Vitamin B12 added. Patient is to have follow-up with vascular surgery next week. Patient will be discharged today in stable condition. DISCHARGE DIAGNOSES 1. Acute ischemic CVA 2. Moderate carotid artery stenosis that is symptomatic. 3. Hypertension and hypertensive cardiovascular disease. 4. Hyperlipidemia. 5. History of compensated abdominal surgery due to ischemic bowel, bowel perforation and multiple bowel resections with colostomy placement and reversal ended up with a pigskin graft placement with Dr. Gotti at [facility]. 6. Osteoarthritis of both knees status post arthroscopic knee surgery. DISCHARGE PLAN Home Greater than 35 minutes was utilized and coordinating patient's discharge. Impression and plan of care have been directed as dictated by the signing physician. Marilia Hackett nurse practitioner acting as scribe for signing physician. Patient Condition at Discharge: Stable Plan - Discharge Summary New Discharge Prescriptions: New Clopidogrel [Plavix] 75 mg PO DAILY #21 tab Cyanocobalamin [Vitamin B-12] 1,000 mcg PO DAILY tab Aspirin 81 mg PO DAILY Losartan [Cozaar] 25 mg PO DAILY #30 tab Discharge Medication List Aspirin 81 mg PO DAILY 07/03/21 [Rx] Clopidogrel [Plavix] 75 mg PO DAILY #21 tab 07/03/21 [Rx] Cyanocobalamin [Vitamin B-12] 1,000 mcg PO DAILY tab 07/03/21 [Rx] Losartan [Cozaar] 25 mg PO DAILY #30 tab 07/03/21 [Rx] Follow up Appointment(s)/Referral(s): Sukhdeep Poe MD [Primary Care Provider] - 1 Week Froilan Denis DO [STAFF PHYSICIAN] - 1 Week Jose Alejo MD [STAFF PHYSICIAN] - 6 Weeks (5 WEEKS. Office will call with appointment time and date.) Activity/Diet/Wound Care/Special Instructions: FOLLOW UP DIRECTED, SOONER FOR WORSENING PROBLEMS OR CONCERNS. Discharge Disposition: HOME SELF-CARE
--- NOTE | 2021-07-02 16:11 | MR ---
EXAMINATION TYPE: MR brain wo con DATE OF EXAM: 07/02/2021 COMPARISON: CT brain from 1 day earlier HISTORY: Right-sided numbness. Code stroke on admission one day earlier. TECHNIQUE: Multiplanar, multisequence imaging of the brain and brainstem is performed without IV cont rast. FINDINGS: Diffusion weighted images demonstrate no evidence of a recent infarct or other diffusion abnormality. There is mild to moderate ventricular and sulcal prominence. Some confluent areas of T2 hyperintensit y are seen in the periventricular white matter. There is old infarct involving the right occipital lo be near axial image 15 along with involving the left cerebellar hemisphere inferiorly axial image 4.. Midline structures demonstrate normal morphology. The craniocervical junction appears within normal limits. Normal vascular flow voids are present. The visualized sinuses are clear and the globes are i ntact. IMPRESSION: 1. No MRI evidence for recent infarct. 2. Mild to moderate diffuse cerebral atrophy and chronic small vessel ischemic change with old bilate ral infarcts identified.
[2021-07-02] MEDS: ATORVASTATIN 40 MG TAB PO SCH (20:57)
[2021-07-03] MEDS: LOSARTAN 25 MG TAB PO SCH (07:19)
[2021-07-03] MEDS: CLOPIDOGREL 75 MG TAB PO SCH (07:19)
[2021-07-03] MEDS: ENOXAPARIN 40 MG/0.4 ML SYRINGE SQ SCH (07:20)
[2021-07-03] MEDS ORDERED: CYANOCOBALAMIN 1,000 MCG/ML 1 ML VIAL IM ONE (07:51)
[2021-07-03] MEDS ORDERED: ASPIRIN 81 MG PO SCH (09:00)
--- NOTE | 2021-07-03 09:45 | P.PN ---
Subjective Progress Note Date: 07/03/21 HISTORY OF PRESENT ILLNESS: This is a 70-year-old male with a past medical history multiple abdominal surgeries following complications from a biopsy. Patient does not follow with a instrumentation technologist. We have been asked to see the patient in consultation for TIA. Patient examined at the bedside. Patient presented to the hospital with a chief complaint of numbness on the right side of his face and right-sided weakness. His symptoms have since resolved. He denies any chest pain or pressure. Denies shortness of breath. Denies palpitations. Patient states he was hospitalized a few years ago at [facility] secondary to complications from an abdominal surgery and had sepsis. The patient initially thought he had an episode of atrial fibrillation at that time. However his is at the bedside and states she was told the patient had an episode of ventricular fibrillation. She states she remembers two doctors running into the patient's room and was told he was in V. fib but it only lasted for about 15 seconds and he converted on his own. The patient is not prescribed anticoagulation on an outpatient basis. * EKG reveals sinus mechanism with no signs of acute ischemia * Chest xray low lung volumes with mild left basilar linear scarring * Echocardiogram completed revealing ejection fraction 55-60%, trace MR, and trace TR * CT angios head and neck revealed right occipital lobe infarct noted. Approximate 75% stenosis of the left internal carotid artery and 50% stenosis of the right internal carotid artery. * Laboratory data: WBC 6.35. Hemoglobin 15.6. Platelet count 241. Sodium 138. Potassium 5.0. BUN 21. Creatinine 0.8. Troponin negative 1. * Current home cardiac medications include none 07/03/2021 Patient examined this morning at the bedside. Patient denies chest pain or pressure. He denies shortness of breath. Denies dizziness or light headedness. Denies any palpitations. Records reviewed from [facility] revealing evidence of sinus mechanism only. No evidence of atrial fibrillation was seen and records that were faxed over. Telemetry reveals sinus mechanism. PHYSICAL EXAM: VITAL SIGNS: Reviewed. GENERAL: Well-developed in no acute distress. HEENT: Head is normocephalic. Pupils are equal, round. Sclerae anicteric. Mucous membranes of the mouth are moist. Neck supple. No JVD or thyromegaly LUNGS: Respirations even and unlabored. Lungs essentially clear to auscultation bilaterally. HEART: Regular rate and rhythm. S1 and S2 heard. ABDOMEN: Soft. Nondistended. Nontender. EXTREMITIES: Normal range of motion. No clubbing or cyanosis. Peripheral pulses intact. No lower extremity edema NEUROLOGIC: Awake and alert. Oriented x 3. ASSESSMENT: Suspected TIA Carotid stenosis History of atrial fibrillation versus ventricular fibrillation, per patient and family; no evidence of atrial fibrillation in reviewing records from [facility] PLAN: Continue current cardiac medications Patient to receive an event monitor this morning He is stable for discharge home today from a cardiac standpoint He will have an outpatient stress test performed He is to follow up with Dr. Alejo in 5 weeks Nurse practitioner note has been reviewed by physician. Signing provider agrees with the documented findings, assessment, and plan of care. Objective - Vital Signs Vital signs: Vital Signs Temp 97.9 F 07/03/21 07:41 Pulse 77 07/03/21 07:41 Resp 16 07/03/21 07:41 BP 116/73 07/03/21 07:41 Pulse Ox 93 L 07/03/21 07:41 Intake & Output 07/02/21 07/03/21 07/03/21 18:59 06:59 18:59 Intake Total 600 100 Balance 600 100 Intake: Oral 600 100 Other: Voiding Method Toilet Toilet # Voids 1 2 - Labs CBC & Chem 7: 07/02/21 06:06 07/02/21 06:06 Labs: Abnormal Lab Results - Last 24 Hours (Table) 07/02/21 07/02/21 Range/Units 06:06 06:06 Triglycerides 197.00 H (0.00-149.00) mg/dL Homocysteine 14.50 H (4.00-14.00) umol/L
--- NOTE | 2021-07-03 12:33 | P.PN ---
Subjective Progress Note Date: 07/02/21 HISTORY OF PRESENT ILLNESS: This is a 70-year-old male with a previous medical history significant for hypertension and hypertensive cardiovascular disease, hyperlipidemia, history of osteoarthritis of both knees status post arthroscopic knee surgeries, history of significant abdominal surgeries back in September 2015 when he went to have a possible CT-guided biopsy of a mass behind the duodenum that led to an open biopsy that was done by Dr. Watkins patient ended up with significant trouble with septic shock patient ended up getting shipped to [facility] where he underwent a total of 10 surgery initially 5 surgery that led to a big open wound in the abdomen that was treated conservatively followed by a skin graft surgery and then he ended up having a a temporary colostomy with an attempted reversal that led to a bowel perforation patient then ended up having 3 more surgery than he had a skin graft from of big scan dialysis 10th surgery back in 2017, during that time patient was hospitalized multiple times to [facility] with multiple diagnoses including line sepsis as well as septic shocks for different reasons, patient was treated with IV antibiotic as well as IV TPN for long period of time, I have not seen the patient for quite sometimes more than 4 years ago, patient presented to the emergency department at [facility] today after he was mowing the lawn outside for many hours and he sat down and all of a sudden developed to have a significant pain in the jaw associated with right arm numbness and right leg numbness, and then he developed to have significant involuntary movement of the right upper extremity right lower extremity patient ended up coming to the emergency department by his who drove him and had a computed tomography scan of the brain without contrast that did show evidence of multiple chronic infarcts in the left c erebellar right superior frontal right medial parieto- occipital region with cortical and subcortical infarcts without acute evidence of acute infarcts, this is due to possible embolic phenomenon therefore the patient underwent CTA of the head and neck that showed evidence of 75% stenosis of the left internal carotid artery and 50% stenosis of the right internal carotid artery patient was placed on aspirin 325 mg every day, he was started on atorvastatin 40 mg orally once every day, and patient will be admitted to the telemetry unit for evaluation, he'll also be having an Echocardiogram for evaluation of a embolic source such as a patent foramen ovale and/or aortic debris. 07/02: Patient has been seen by neurology and MRI of the brain has been ordered which is scheduled for late today. Patient has been seen by vascular surgery with plan to follow-up in the office and possible surgical intervention in the next 2 weeks or so. Cardiology has evaluated the patient and he will be sched uled for event monitor at the time of discharge. Patient's is at bedside and states the patient has no history of atrial fibrillation but does have history of ventricular fibrillation. Patient denies any further symptoms. Anticipate discharge home tomorrow. Homocysteine elevated at 14.5, folate 12.1, triglycerides 197, cholesterol 163, LDL 81, HDL 42. Carotid ultrasound reveals atherosclerotic plaque with no significant hemodynamic stenosis. Echocardiogram reveals normal LV systolic function, trace tricuspid regurgitation, trace mitral regurgitation REVIEW OF SYSTEMS: Constitutional: No documented fever, no chills, no night sweats. No weight change. No weakness, fatigue or lethargy. No daytime sleepiness. HEENT: No headache. No blurred vision or double vision, no loss of vision. No loss of Hearing, no ringing in the ears, no dizziness. No nasal drainage or congestion. No epistaxis. No sore throat. Lungs: No shortness of breath, no cough, no sputum production. No wheezing. Reports dyspnea with activity. Cardiovascular: No chest pain, no lower extremity edema. No palpitations. No paroxysmal nocturnal dyspnea. No orthopnea. No lightheadedness or dizziness. No syncopal episodes. Abdominal: Reports no abdominal pain. No nausea, vomiting. No diarrhea. No constipation. No bloody or tarry stools reports loss of appetite. Genitourinary: No dysuria, increased frequency, urgency. No urinary retention. Musculoskeletal: No myalgias. No muscle weakness, no gait dysfunction, no frequent falls. No back pain. No neck pain. Integumentary: No wounds, no lesions. No rash or pruritus. No unusual bruising. No change in hair or nails. Neurologic: No aphasia. No facial droop. No change in mentation. No head injury. No headache. No paralysis. Right sided procedure that has resolved by the time he came to the ER. No new symptoms. Psychiatric: No depression. No anxiety. No mood swings. Endocrine: No abnormal blood sugars. No weight change. PHYSICAL EXAMINATION: General: 70-year-old male a not a bit in no apparent distress. HEENT: Head is atraumatic, normocephalic, pupils were equal round reactive to light and recommendation, extraocular muscle movement were intact, sclera nonicteric, conjunctivae were pale, mucous membranes of the mouth are somewhat dry. Neck: Supple, no JVP, decreased carotid upstroke bilaterally with left carotid bruit, no lymphadenopathy. Chest: Decreased breath sounds at the bases, few rhonchi, no expiratory wheezes, no chest wall tenderness, no intercostal retractions. Heart: First heart sound is normal, second heart sounds normal, there is no gallop or murmur. Abdomen: Soft, nontender, nondistended, multiples surgical scar, there is an area with a a pigskin graft that is very thin individual of the abdomen. Extremities: There is no edema no calf tenderness DP +2 bilaterally. Neurologic examination: Patient is awake alert and oriented X 3, cranial nerves II-12 appear grossly intact, muscle power were 5 out of 5 in upper extremities and 5 out of 5 in bilateral lower extremities, deep tendon reflexes normal bilaterally. ASSESSMENT AND PLAN: 1. TIA in the distribution of the left middle cerebral artery with right sided facial arm and lower extremity numbness. Patient will be started on aspirin 325 mg once every day and changed to 81 mg daily, neurology consult appreciated, continue the patient on atorvastatin 40 mg orally once every day, MRI of the brain with and without gadolinium is in order. 2 . Moderate carotid artery stenosis that is symptomatic. Consult vascular surgery Dr. Denis is appreciated. Follow-up outpatient 1 week. 3. Hypertension and hypertensive cardiovascular disease. Start the patient on losartan 25 mg orally once every day. 4. Hyperlipidemia. Check lipid panel, start the patient on atorvastatin 40 mg orally once every day. 5. History of compensated abdominal surgery due to ischemic bowel full by bowel perforation and multiple bowel resections with colostomy placement and reversal ended up with a pigskin graft placement with Dr. Gotti at [facility]. 6. Osteoarthritis of both knees status post arthroscopic knee surgery. 7. DVT prophylaxis. Bilateral knee-high GARRETT hose, Lovenox 40 mg subcu Thursday every 24 hours, please avoid the abdomen. 8. GI prophylaxis. Protonix 40 mg orally once every day. Patient is full code. DISCHARGE PLAN Home Impression and plan of care have been directed as dictated by the signing physician. Marilia Hackett nurse practitioner acting as scribe for signing physician. Objective - Vital Signs Vital signs: Vital Signs Temp 97.7 F 07/02/21 06:50 Pulse 71 07/02/21 06:50 Resp 18 07/02/21 06:50 BP 134/74 07/02/21 06:50 Pulse Ox 96 07/02/21 06:50 Intake & Output 07/01/21 07/02/21 07/02/21 18:59 06:59 18:59 Intake Total 120 Balance 120 Weight 99.79 kg 99.79 kg Intake: Oral 120 Other: Voiding Method Toilet # Voids 1 - Labs CBC & Chem 7: 07/02/21 06:06 07/02/21 06:06 Labs: Abnormal Lab Results - Last 24 Hours (Table) 07/01/21 07/01/21 07/02/21 Range/Units 14:51 14:51 06:06 APTT 20.1 L (22.0-30.0) sec BUN 21 H (9-20) mg/dL Total Bilirubin 1.4 H (0.2-1.3) mg/dL Triglycerides 197.00 H (0.00-149.00) mg/dL
[2021-07-03 13:17] VITALS: BP 118/71; PULSE 71; RESP 18; TEMP 97.7
[2021-07-03] MEDS ORDERED: FOLIC ACID 1 MG TAB PO SCH (13:30)
--- NOTE | 2021-07-03 13:34 | P.PN ---
Subjective Progress Note Date: 07/03/21 The patient is seen at bedside and feels he is back to baseline. Denies of any new neurological issues. He is accompanied by his and patient stated in 2016 he mis-spoke and did not have Atrial fibrillation but rather V.Fib lasting about 15 seconds and he converted on his own. He denies of any history of Afib or flutter that is aware of. Cardiology has placed an event monitor. Objective - Vital Signs Vital signs: Vital Signs Temp 97.9 F 07/03/21 07:41 Pulse 77 07/03/21 07:41 Resp 16 07/03/21 07:41 BP 116/73 07/03/21 07:41 Pulse Ox 93 L 07/03/21 07:41 Intake & Output 07/02/21 07/03/21 07/03/21 18:59 06:59 18:59 Intake Total 600 100 Balance 600 100 Intake: Oral 600 100 Other: Voiding Method Toilet Toilet # Voids 1 2 - Exam GENERAL: The patient is lying in bed and is not in acute distress. NEUROLOGICAL: Higher mental function: The patient is awake, alert, oriented to self, place and time. Patient is following commands. No aphasia and no neglect. Cranial nerves: The pupils are round, equal and reactive to light and accommodation. Visual bhatt is bilateral left lower quadrant anopsia (old). . Extraocular movement is intact no nystagmus is noted. Facial sensation is normal to touch throughout. The facial strength is normal throughout. Hearing is normal bilaterally to hand rub. Tongue is midline and moved [id number] without any difficulty. No dysarthria is noted. Shoulder shrug is normal bilaterally. Motor: The strength is 5 over 5 throughout. Normal tone and bulk. Cerebellum: Normal finger to nose heel to vail bilaterally. Sensation: Sensation is normal to touch throughout. Reflexes (right/left): 2+ throughout. Plantars are downgoing bilaterally. WORK-UP: CT of the head is reported as brain volume loss changes, chronic ischemic changes and scattered chronic infarct. No acute intracranial hemorrhage or gross acute cortical infarct however a small acute or hyperacute infarct cannot be excluded by this computed tomography scan. I personally reviewed the CT of the head and there is no acute or subacute ischemia but has encephalomalacia over the right occipital and left cerebellar. CT angiography of the head and neck was reported as no significant intercranial and angiographic abnormality. Right occipital lobe infarct noted. There is approximately 75% stenosis at the origin of left internal carotid artery and 50% stenosis origin of the right internal carotid artery due to plaque formation. Carotid duplex: It is reported as Atherosclerotic plaque with no significant hemodynamic stenosis. 2D echo: It is reported as Normal LV systolic function. EF 55-60%. Left atrium is normal is size. Mildly increased septal wall thickness over the left ventricle. EKG is reported as sinus rhythm. Nonspecific T wave abnormality. Borderline EKG. MRI Brain is reported as no MRI evidence for recent infarct. Mild to moderate diffuse cerebral atrophy and chronic small vessel ischemic changes with old bilateral infarct (right occipital and left cerebellar hemisphere). I personally reviewed MRI and felt patient had acute to subacute ischemic stroke over the left occipital and left subcortical frontal region that is small. I reviewed image with Dr. Rushing (other reading radiologist) who agrees with my findings. ESR is 9 which is within normal limits Vitamin B12 is 270 (normal is 200-944) which is considered low normal Folic acid 12.10. Homocystine was 14.50 (normal is 4-14). - Labs CBC & Chem 7: 07/02/21 06:06 07/02/21 06:06 Labs: Abnormal Lab Results - Last 24 Hours (Table) 07/02/21 Range/Units 06:06 Homocysteine 14.50 H (4.00-14.00) umol/L Assessment and Plan Assessment: Acute to subacute ischemic stroke (Stroke over the left occipital and subcortical frontal that is small on MRI). Etiology is cryptogenic but seems emoblic (possibly cardioembolic). Carotid stenosis (left ICA 75% and right ICA 50% stenosis per CTA) but no significant stenosis on carotid duplex. History of stroke (encephalomalacia over the right occipital and left cerebellar) No history of A-fib or flutter in past and stated in 2016 he had episode of V- fib that was brief (while at [facility]). Plan: * MRI Brain is reported as no MRI evidence for recent infarct. Mild to moderate diffuse cerebral atrophy and chronic small vessel ischemic changes with old bilateral infarct (right occipital and left cerebellar hemisphere). I personally reviewed MRI and felt patient had acute to subacute ischemic stroke over the left occipital and left subcortical frontal region that is small. I reviewed image with Dr. Rushing (other reading radiologist) who agrees with my findings. * Continue ASA 81mg and Plavix 75mg (not on home antiplatelets or anticoauglation) for 30 days and after that stop Plavix from neurological perspective but continue ASA. Patient could not tolerate Lipitor 40mg qhs which made him nauseous so therefore will hold statins. * Vitamin B12 is 270 which is considered low normal therefore I started the patient on the vitamin B12 1000 g IM once then thousand micrograms daily by mouth. * Folic acid 12.10 but the homocystine was 14.50 I started the patient on folic acid 1 mg daily * Vascular surgery team is consulted by the primary team. He will follow-up as outpatient with team. * Cardiology team is consulted. He has event monitor placed and to follow-up with cardiology as outpatient. Consider loop recorder as an outpatient in the event monitor does not detect any A. fib or flutter after 30 days. * PT OT and PRINTED CIRCUIT PHOTOGRAPHER are consulted * Continue neuro checks * Placed the patient on cardiac monitoring * For DVT prophylaxis the patient is on Lovenox * Upon discharge the patient needs to follow-up with a neurologist as outpatient within 1-2 weeks The plan is discussed with the patient and his who is at bedside. There is no further neurological workup needed at this time. Patient is clear for discharge from a neurological perspective. Jeff Douglass M.D. Neuro-hospitalist Time with Patient: Less than 30
[2021-07-04] MEDS ORDERED: CYANOCOBALAMIN 500 MCG TAB PO SCH (09:00)
--- NOTE | 2021-08-06 19:33 | EM ---
EVENT MONITOR THIRTY-DAY EVENT MONITOR REPORT: There were several rhythm strips available for review. Almost all of these are sinus mechanism. Most of these were auto capture. Occasional manual strips were noted but no symptoms were reported. Sinus rhythm with sinus arrhythmia and some ectopic atrial rhythm was noted. There is no evidence of any significant abnormal rhythms on this 30- day event monitor. Rare isolated PVCs were noted. One or two couplets were noted. No evidence of any SVT, VT or bradyarrhythmia. FINAL IMPRESSION: Unremarkable 30-day event monitor with predominant sinus rhythm. No significant arrhythmia was noted. MMODL / IJN: [id number] /
== END 2021-07-03 14:47 | disposition home or self-care (01) | DRG 66 ==
LOC: EC 14:18 → 6NMEDSUR 18:38 → OBSVTOIN 07-02 11:55
PROVIDERS: ADMIT Internal Medicine; ATTEND Internal Medicine
DX: I63.9 Cerebral infarction, unspecified (principal); I25.10 Atherosclerotic heart disease of native coronary artery without angina pectoris; I65.23 Occlusion and stenosis of bilateral carotid arteries; I69.398 Other sequelae of cerebral infarction; M17.0 Bilateral primary osteoarthritis of knee; R29.810 Facial weakness; G93.89 Other specified disorders of brain; E66.9 Obesity, unspecified; Z68.29 Body mass index [BMI] 29.0-29.9, adult; I11.9 Hypertensive heart disease without heart failure; E78.5 Hyperlipidemia, unspecified; Z79.02 Long term (current) use of antithrombotics/antiplatelets; Z79.82 Long term (current) use of aspirin; Z79.899 Other long term (current) drug therapy; Z80.3 Family history of malignant neoplasm of breast; Z82.49 Family history of ischemic heart disease and other diseases of the circulatory system; Z83.3 Family history of diabetes mellitus; Z86.79 Personal history of other diseases of the circulatory system; Z87.442 Personal history of urinary calculi; Z87.891 Personal history of nicotine dependence; Z96.89 Presence of other specified functional implants; Z98.890 Other specified postprocedural states; Z90.49 Acquired absence of other specified parts of digestive tract; Z91.030 Bee allergy status; Z28.310 Unvaccinated for COVID-19
CPT/HCPCS: 36415; 70450; 70496; 70498; 70551; 71046; 80053; 80061; 82607; 82746; 83090; 84484; 85025; 85610; 85652; 85730; 93005; 93270; 93306; 93880; 96360; 96361; 99285

== ENCOUNTER 2021-08-02 12:43 | Observation (INO) | payer MEDICARE ==
[2021-08-02 13:56] LABS: Glucose,Whole Blood 106 mg/dL (75-99)
[2021-08-02] MEDS ORDERED: SODIUM CHLORIDE 0.9% 500 ML 500 ML IV STA (13:58)
[2021-08-02 14:22] LABS: Basophils # (A) 0.2 k/uL (0-0.2); Basophils % (A) 2 %; Eosinophils # (A) 0.1 k/uL (0-0.7); Eosinophils % (A) 1 %; Lymphocytes # (A) 1.3 k/uL (1.0-4.8); Lymphocytes % (A) 14 %; MCH 29.7 pg (25.0-35.0); MCHC 31.4 g/dL (31.0-37.0); MCV 94.8 fL (80.0-100.0); Mean Platelet Volume 7.2; Monocytes # (A) 0.7 k/uL (0-1.0); Monocytes % (A) 8 %; Neutrophils # (A) 6.5 k/uL (1.3-7.7); Neutrophils % (A) 72 %; Platelet Count 243 k/uL (150-450); RBC 5.38 m/uL (4.30-5.90); RDW 12.5 % (11.5-15.5)
[2021-08-02 14:35] LABS: ALT 18 U/L (4-49); AST 31 U/L (17-59); African American GFR (CKD) >90 (>60 ml/min/1.73 sqM); Albumin 4.8 g/dL (3.5-5.0); Alkaline Phosphatase 55 U/L (38-126); Anion Gap 13 mmol/L; Blood Urea Nitrogen 25 mg/dL (9-20); Carbon Dioxide 23 mmol/L (22-30); Chloride 103 mmol/L (98-107); Glucose 96 mg/dL (74-99); INR 0.9 (<1.2); Non-African American GFR(CKD) >90 (>60 ml/min/1.73 sqM); Partial Thromboplastin Time 23.3 sec (22.0-30.0); Potassium 4.8 mmol/L (3.5-5.1); Prothrombin Time 10.3 sec (9.0-12.0); Sodium 139 mmol/L (137-145); Total Bilirubin 0.8 mg/dL (0.2-1.3); Total Protein 7.5 g/dL (6.3-8.2)
[2021-08-02 14:42] LABS: Appearance,Urine Clear (Clear); Bilirubin,Urine Negative (Negative); Blood,Urine Negative (Negative); Color,Urine Yellow; Glucose,Urine (UA) Negative (Negative); Ketones,Urine Negative (Negative); Leukocyte Esterase,Urine Negative (Negative); Nitrite,Urine Negative (Negative); PH, Urine 5.5 (5.0-8.0); Protein,Urine Negative (Negative); Specific Gravity,Urine 1.026 (1.001-1.035); Urobilinogen,Urine <2.0 mg/dL (<2.0)
--- NOTE | 2021-08-02 15:24 | CT ---
EXAMINATION TYPE: CT brain wo con for TPA DATE OF EXAM: 08/02/2021 COMPARISON: 07/01/2021 HISTORY: right side weakness CT DLP: 1126.6 mGycm Automated exposure control for dose reduction was used. Findings: The ventricles, basal cisterns and sulci over the convexities are mildly enlarged consistent with mil d atrophy and appropriate for the patient's age. There is no mass effect or shift of midline structur es. There is a remote cortical infarct involving the right occipital lobe. There is no acute intra or ext ra-axial hemorrhage or evidence of acute infarct. Posterior fossa including the brainstem, fourth ventricle and cerebellar pontine angles appear grossl y normal. There is a remote infarct of the left cerebellum. Intraorbital contents appear normal and symmetric. Visualized paranasal sinuses are well aerated. There is mild mucosal thickening in the right maxillar y sinus. The mastoid air cells are well aerated. IMPRESSION: 1. No evidence of acute infarct or acute bleed or mass effect. 2. Remote right occipital and left cerebellar infarcts which are stable. 3. Mild generalized atrophy appropriate for patient's age
--- NOTE | 2021-08-02 15:27 | XR ---
EXAMINATION TYPE: XR chest 2V DATE OF EXAM: 08/02/2021 COMPARISON: 07/11/2021 TECHNIQUE: PA and lateral views submitted. HISTORY: Mental status change. FINDINGS: The lungs are clear and there is no pneumothorax, pleural effusion, or focal pneumonia. Hyperinflat ion suggests COPD. IMPRESSION: 1. No acute process.
[2021-08-02 15:36] LABS: Amphetamine Screen,Urine Not Detected (NotDetected); Barbiturate Screen,Urine Not Detected (NotDetected); Benzodiazepines Screen,Urine Not Detected (NotDetected); Cocaine Screen,Urine Not Detected (NotDetected); Methadone Screen, Urine Not Detected (NotDetected); Opiate Screen,Urine Not Detected (NotDetected); Oxycodone Screen, Urine Not Detected (NotDetected); Phencyclidine Screen,Urine Not Detected (NotDetected); Tricyclic Antidepressant,Urine Not Detected (NotDetected); Urn Cannabinoid Scrn Not Detected (NotDetected)
--- NOTE | 2021-08-02 15:50 | CT ---
EXAMINATION TYPE: CT angio head neck DATE OF EXAM: 08/02/2021 COMPARISON: CT 08/02/2021. Previous CTA 07/01/2021 HISTORY: 70-year-old male right side weakness TECHNIQUE: Contiguous axial scanning of the head and neck performed with IV Contrast, patient injecte d with 65 mL of Isovue 370. Coronal/sagittal MIP reconstructions performed. CT DLP: 857.6 mGycm Automated exposure control for dose reduction was used. FINDINGS: NECK: Mild metastatic arch calcifications. Bovine configuration to the aortic arch. Possible mild narrowing at the origin of the right vertebral artery right vertebral artery is dominant. Both vertebral arter ies are otherwise patent throughout the course. Right common carotid artery is patent. Moderate atherosclerotic plaque and calcification at the right carotid bifurcation. Redemonstrated mo derate, 50% narrowing at the right carotid bulb secondary to eccentric atherosclerotic plaque and andrew cification. Tortuous upper and mid right ICA. Left common carotid artery is patent. Similar prominent atherosclerotic plaque proximal left ICA resulting in a severe, 80% stenosis at the level of the carotid bulb. Remainder of the left ICA is patent. HEAD: Mild atherosclerotic narrowing proximal V4 segment right vertebral artery. The V4 segment left verteb ral artery becomes severely hypoplastic and likely terminates as a PICA branch. Slightly diminutive basilar artery otherwise patent. Hypoplastic A1 segment right posterior cerebral artery with a prominent contribution from the posteri or communicating artery. A patent left posterior communicating artery is also seen. Remainder of the posterior circulation is patent. Dural venous sinuses are patent. Congenitally hypoplastic left transverse sinus. Mild atherosclerotic calcifications and variable mild narrowing throughout the bilateral carotid siph ons. Remainder of the anterior circulation is patent. No evidence for aneurysmal change. IMPRESSION: NECK: 1. SIMILAR ATHEROSCLEROTIC CHANGE AT THE LEFT GREATER THAN RIGHT BIFURCATIONS. THIS RESULTS IN A SULY RE, 80% PROXIMAL LEFT ICA STENOSIS AND BORDERLINE MODERATE, 50% PROXIMAL RIGHT ICA STENOSIS. 2. DOMINANT RIGHT VERTEBRAL ARTERY. THERE MAY BE A MILD NARROWING AT ITS ORIGIN. HEAD: 3. SIMILAR MILD ATHEROSCLEROTIC NARROWING THROUGHOUT THE BILATERAL CAROTID SIPHONS. 4. NO LARGE VESSEL INTRACRANIAL ARTERIAL OCCLUSION OR ANEURYSMAL CHANGE IS SEEN. 5. ANATOMIC VARIATION: MILD FOCAL STENOSIS PROXIMAL V4 SEGMENT RIGHT VERTEBRAL ARTERY. THE NONDOMINAN T LEFT VERTEBRAL ARTERY BECOMES MARKEDLY HYPOPLASTIC AND LIKELY TERMINATES A PICA BRANCH. 6. ANATOMIC VARIATION: HYPOPLASTIC P1 SEGMENT RIGHT MEDICAL ASSISTANT INTERNAL MEDICINE FED BY A PROMINENT CONTRIBUTION FROM THE RIGH T POSTERIOR COMMUNICATING ARTERY.
[2021-08-02] MEDS ORDERED: ASPIRIN 325 MG TAB PO STA (16:19)
--- NOTE | 2021-08-02 16:21 | ED ---
General Adult HPI - General Chief complaint: Neuro Symptoms/Deficit Stated complaint: Numbness Rt Arm/Rt Leg Time Seen by Provider: 08/02/21 13:46 Source: patient, RN notes reviewed, old records reviewed Mode of arrival: wheelchair Limitations: no limitations - History of Present Illness Initial comments: Patient is a 70-year-old male with past medical history remarkable for prior TIAs, who presents emergency Department complaining of neurological symptoms. Approximate 4 hours prior to arrival at 10 or 10:30 AM, the patient was having right-sided numbness diffusely through his right arm and right leg into his foot and hand. States it caused issues with walking. Has since resolved. Presents for further evaluation time. Denied any chest pain, shortness of breath. States he was on blood thinners for approximately 3 weeks after prior TIA. No residual symptoms from that. No longer on blood thinners. Is on baby aspirin. Concern of remaining medications. Denies any other acute complaints at this time include fevers, chills, sick contacts, chest pain. Presents for further evaluation. - Related Data Previous Rx's Medication Instructions Recorded Aspirin 81 mg PO DAILY 07/03/21 Losartan [Cozaar] 25 mg PO DAILY #30 tab 07/03/21 Allergies Allergy/AdvReac Type Severity Reaction Status Date / Time venom-honey bee Allergy Anaphylaxis Verified 08/02/21 15:33 [bee venom (honey bee)] Review of Systems ROS Statement: Those systems with pertinent positive or pertinent negative responses have been documented in the HPI. Review of Systems: CONST: Denies fever EYES: Denies blurry vision ENT: Denies nasal congestion C/V: Denies Chest pain RESP: Denies shortness of breath GI: Denies abdominal pain : Denies dysuria SKIN: Denies rash. MSK: Denies joint pain. NEURO: Denies headache ROS Other: All systems not noted in ROS Statement are negative. Past Medical History Past Medical History: CVA/TIA Additional Past Medical History / Comment(s): kidney stones. TIA years ago History of Any Multi-Drug Resistant Organisms: None Reported Past Surgical History: Orthopedic Surgery Additional Past Surgical History / Comment(s): lola knee arthrosc.09-27-15 OPEN ILEOCOLECTOMY Past Anesthesia/Blood Transfusion Reactions: No Reported Reaction Past Psychological History: No Psychological Hx Reported Smoking Status: Former smoker Past Alcohol Use History: Occasional Past Drug Use History: None Reported - Past Family History Mother Family Medical History: Cancer Additional Family Medical History / Comment(s): BREAST CANCER Father Family Medical History: Myocardial Infarction (NM) Additional Family Medical History / Comment(s): MULTIPLE NM'S BEFORE AT AGE 40 General Exam - General Exam Comments Initial Comments: General: Appears in no acute distress. HEAD: Normal with no signs of head trauma. EYES: PERRLA, EOMI, conjunctiva normal, no discharge. Peoples 3 mm equal bilaterally. ENT: Hearing grossly intact, normal oropharynx. RESPIRATORY: Clear breath sounds bilaterally. No wheezes, rales, or rhonchi. C/V: Regular rate and rhythm. S1 and S2 auscultated, no edema, peripheral pulses 2+ and intact throughout ABD: Abd is soft, nontender, nondistended EXT: Normal range of motion, no obvious deformity SKIN: No rashes or lesions observed on exposed skin. NEURO: Alert and oriented x 4. Cranial nerves II-XII intact. No focal sensory or strength deficits. NIH of 0. GCS is 15. Cerebellar function is intact as evident by normal finger-nose and [id number]-[id number] testing. Ambulates without difficulty. Romberg within normal limits. Limitations: no limitations Course Vital Signs 08/02/21 08/02/21 08/02/21 13:14 15:00 17:00 Temperature 98.5 F Pulse Rate 76 78 70 Respiratory 16 16 16 Rate Blood Pressure 114/75 126/84 140/65 O2 Sat by Pulse 96 95 95 Oximetry Medical Decision Making - Medical Decision Making Based on the patient's presentation and physical exam, I'm concerned for TIA. NIH is currently 0. Last known well was about 4 hours ago. Due to the NIH being 0, we will not activate stroke pager. Stroke labs, CT imaging of the brain also be obtained. He was in agreement this plan. Patient was never a TPA candidate as risks far outweigh the benefits, is the patient's NIH has remained 0 throughout his stay. Vital signs within normal limits. EKG showed no signs of acute ischemia. Laboratory studies remarkable for a normal glucose.Chest x-ray showed no acute cardio primary process. Brain CT revealed no acute intracranial process. There are remote infarcts that are chronic. CT angiogram revealed no acute process, but chronic arterial narrowing. On reevaluation, I did recommend that we admit the patient to observation. He remains asymptomatic. NIH remains 0. He was in agreement this plan. He will be given 325 mg of aspirin. Spoke with neurology, Dr. Douglass who was in agreeme nt this plan. Spoke with the patient's admitting doctor, Dr. Poe who accepted the patient. - Lab Data Result diagrams: 08/02/21 14:05 08/02/21 14:05 Lab Results 08/02/21 08/02/21 08/02/21 Range/Units 13:54 14:05 14:05 WBC 9.0 (3.8-10.6) k/uL RBC 5.38 (4.30-5.90) m/uL Hgb 16.0 (13.0-17.5) gm/dL Hct 51.0 (39.0-53.0) % MCV 94.8 (80.0-100.0) fL MCH 29.7 (25.0-35.0) pg MCHC 31.4 (31.0-37.0) g/dL RDW 12.5 (11.5-15.5) % Plt Count 243 (150-450) k/uL MPV 7.2 Neutrophils % 72 % Lymphocytes % 14 % Monocytes % 8 % Eosinophils % 1 % Basophils % 2 % Neutrophils # 6.5 (1.3-7.7) k/uL Lymphocytes # 1.3 (1.0-4.8) k/uL Monocytes # 0.7 (0-1.0) k/uL Eosinophils # 0.1 (0-0.7) k/uL Basophils # 0.2 (0-0.2) k/uL PT 10.3 (9.0-12.0) sec INR 0.9 (<1.2) APTT 23.3 (22.0-30.0) sec Sodium (137-145) mmol/L Potassium (3.5-5.1) mmol/L Chloride (98-107) mmol/L Carbon Dioxide (22-30) mmol/L Anion Gap mmol/L BUN (9-20) mg/dL Creatinine (0.66-1.25) mg/dL Est GFR (CKD-EPI)AfAm (>60 ml/min/1.73 sqM) Est GFR (CKD-EPI)NonAf (>60 ml/min/1.73 sqM) Glucose (74-99) mg/dL POC Glucose (mg/dL) 106 H (75-99) mg/dL POC Glu Transit Clerk ID Rodger Boyle Calcium (8.4-10.2) mg/dL Total Bilirubin (0.2-1.3) mg/dL AST (17-59) U/L ALT (4-49) U/L Alkaline Phosphatase (38-126) U/L Total Protein (6.3-8.2) g/dL Albumin (3.5-5.0) g/dL Urine Color Urine Appearance (Clear) Urine pH (5.0-8.0) Ur Specific [place] (1.001-1.035) Urine Protein (Negative) Urine Glucose (UA) (Negative) Urine Ketones (Negative) Urine Blood (Negative) Urine Nitrite (Negative) Urine Bilirubin (Negative) Urine Urobilinogen (<2.0) mg/dL Ur Leukocyte Esterase (Negative) Urine Opiates Screen (NotDetected) Ur Oxycodone Screen (NotDetected) Urine Methadone Screen (NotDetected) Ur Propoxyphene Screen (NotDetected) Ur Barbiturates Screen (NotDetected) U Tricyclic Antidepress (NotDetected) Ur Phencyclidine Scrn (NotDetected) Ur Amphetamines Screen (NotDetected) U Methamphetamines Scrn (NotDetected) U Benzodiazepines Scrn (NotDetected) Urine Cocaine Screen (NotDetected) U Marijuana (THC) Screen (NotDetected) 08/02/21 08/02/21 08/02/21 Range/Units 14:05 14:05 14:05 WBC (3.8-10.6) k/uL RBC (4.30-5.90) m/uL Hgb (13.0-17.5) gm/dL Hct (39.0-53.0) % MCV (80.0-100.0) fL MCH (25.0-35.0) pg MCHC (31.0-37.0) g/dL RDW (11.5-15.5) % Plt Count (150-450) k/uL MPV Neutrophils % % Lymphocytes % % Monocytes % % Eosinophils % % Basophils % % Neutrophils # (1.3-7.7) k/uL Lymphocytes # (1.0-4.8) k/uL Monocytes # (0-1.0) k/uL Eosinophils # (0-0.7) k/uL Basophils # (0-0.2) k/uL PT (9.0-12.0) sec INR (<1.2) APTT (22.0-30.0) sec Sodium 139 (137-145) mmol/L Potassium 4.8 (3.5-5.1) mmol/L Chloride 103 (98-107) mmol/L Carbon Dioxide 23 (22-30) mmol/L Anion Gap 13 mmol/L BUN 25 H (9-20) mg/dL Creatinine 0.79 (0.66-1.25) mg/dL Est GFR (CKD-EPI)AfAm >90 (>60 ml/min/1.73 sqM) Est GFR (CKD-EPI)NonAf >90 (>60 ml/min/1.73 sqM) Glucose 96 (74-99) mg/dL POC Glucose (mg/dL) (75-99) mg/dL POC Glu Transit Clerk ID Calcium 10.0 (8.4-10.2) mg/dL Total Bilirubin 0.8 (0.2-1.3) mg/dL AST 31 (17-59) U/L ALT 18 (4-49) U/L Alkaline Phosphatase 55 (38-126) U/L Total Protein 7.5 (6.3-8.2) g/dL Albumin 4.8 (3.5-5.0) g/dL Urine Color Yellow Urine Appearance Clear (Clear) Urine pH 5.5 (5.0-8.0) Ur Specific [place] 1.026 (1.001-1.035) Urine Protein Negative (Negative) Urine Glucose (UA) Negative (Negative) Urine Ketones Negative (Negative) Urine Blood Negative (Negative) Urine Nitrite Negative (Negative) Urine Bilirubin Negative (Negative) Urine Urobilinogen <2.0 (<2.0) mg/dL Ur Leukocyte Esterase Negative (Negative) Urine Opiates Screen Not Detected (NotDetected) Ur Oxycodone Screen Not Detected (NotDetected) Urine Methadone Screen Not Detected (NotDetected) Ur Propoxyphene Screen Not Detected (NotDetected) Ur Barbiturates Screen Not Detected (NotDetected) U Tricyclic Antidepress Not Detected (NotDetected) Ur Phencyclidine Scrn Not Detected (NotDetected) Ur Amphetamines Screen Not Detected (NotDetected) U Methamphetamines Scrn Not Detected (NotDetected) U Benzodiazepines Scrn Not Detected (NotDetected) Urine Cocaine Screen Not Detected (NotDetected) U Marijuana (THC) Screen Not Detected (NotDetected) - EKG Data -: EKG Interpreted by Me EKG Comments: 12-lead Electrocardiogram Interpretation Note EKG was reviewed and interpreted by myself. 12-lead ECG performed at 1401 is interpreted by me as revealing normal sinus rhythm at a rate of 81 beats per minute. Halfway is normal. TX interval is 181 ms, QS duration is 92 ms, QTc is 381 ms. There were no ST or T wave abnormalities to suggest myocardial ischemia or injury. R wave progression across the precordium was satisfactory. By my interpretation this EKG is non-diagnostic for acute ischemia. Critical Care Time Critical Care Time: Yes Total Critical Care Time: 35 Critical Care Time: Upon my evaluation, this patient had a high probability of imminent or life- threatening deterioration due to TIA with multiple re-evaluations, which required my direct attention, intervention, and personal management. I have personally provided 35 minutes of critical care time exclusive of time spent on separately billable procedures. Time includes review of laboratory data, radiology results, discussion with consultants, and monitoring for potential decompensation. Interventions were performed as documented in my note. Disposition Clinical Impression: TIA (transient ischemic attack) Disposition: ADMITTED IP TO THIS HOSP Condition: Stable Time of Disposition: 15:50
[2021-08-02 20:00] VITALS: RESP 18
[2021-08-03 08:48] VITALS: BP 124/77; TEMP 97.8
[2021-08-03 08:49] VITALS: PULSE 68
[2021-08-03 09:14] LABS: Chol/HDL Ratio 4.15 Ratio; LDL Cholesterol,Calculated 83.8 mg/dL (0.0-131.0)
[2021-08-03] MEDS ORDERED: TICAGRELOR 90 MG TAB PO STA (10:25)
[2021-08-03] MEDS ORDERED: ASPIRIN 81 MG PO SCH (10:30)
--- NOTE | 2021-08-03 11:01 | P.CNNES ---
History of Present Illness Consult date: 08/03/21 Requesting physician: Wero Shaikh Reason for Consult: TIA History of Present Illness: This is a 70-year-old gentleman with recent stroke (left occipital and subcortical frontal) on of June 2021, old stroke over the right occipital left cerebellar presented emergency department because of right-sided numbness. Spoke with patient's (via phone). He stated that that the symptoms began around 11ishAM early in the morning yesterday and felt his entire right side was numb which he felt had difficulty walking as a result but upon presented to the hospital his symptoms resolved. He stated his symptoms lasted for 1 hour 30 minutes. He denies any other associated neurological issues. He stated he is only on ASA 81mg daily and has completed his Plavix 75mg and was stopped about 1 week as told. He was on Lipitor and could not tolerate it and was having diarrhea. He had event monitor and was taken off yesterday and has an appointment with cardiology this Thursday for stress test and will follow-up with Dr. Alejo. He also has an appointment with Dr. Denis as outpatient for vascular for carotid. Patient is known to me and which I seen him in our facility on the second week of June the patient had acute to subacute ischemic stroke over the left occipital and subcortical frontal on the MRI and his stroke was a cryptogenic. Of Note, as I stated earlier the patient is known to me and had a thorough stroke workup and cardiology was consulted for an event monitor. Patient was p laced on aspirin and Plavix for 21 days then stop Plavix and continue aspirin. Was felt the patient had left ICA stenosis per CTA but no significant stenosis on carotid duplex. Vascular surgery team was consulted and they stated the he'll follow up as an outpatient. Please refer to my notes for further details. Some of the workup during this hospital visit consisted of: I reviewed vital signs and CBC differential was were unremarkable as well as chemistry panel and the only thing that was remarkable was the lipid panel of triglycerides 264, cholesterol 180, LDL of 83, HDL 43. Urine drug screen is not detected. CT of the head is reported as no evidence of acute or acute bleed or mass e ffect. Remote right occipital left cerebellar infarct which are stable. Mild degenerative atrophy appropriate for patient's age. I personally reviewed the CT of the head and there is no acute or subacute ischemia there is no tubercle hemorrhage appeared CT angiography of the head is reported as similar mild others carotid narrowing throughout the bilateral carotid stenosis. No large vessel intracranial artery terminal occlusion or aneurysm changes seen. Anatomical variant mild focal stenosis proximal V4 segment right vertebral artery. The nondominant left vertebral artery becomes markedly hypoplastic and likely the terminate as PICA branch. Anatomic variation; hypoplastic P1 segment right NURSE PRACTICAL fed by a prominent contributions from the right posterior communicating artery. CT angiography of the neck is reported as similar episodes carotid change at the left greater than the right bifurcation. The result is severe, 80% proximal left ICA stenosis and borderline moderate 50% proximal right ICA stenosis. Dominant right vertebral artery there may be a mild narrowing at this origin. Review of Systems Review of system: The 12 point system was reviewed and apparent positive and negative per HPI. Past Medical History Past Medical History: CVA/TIA Additional Past Medical History / Comment(s): kidney stones. TIA years ago History of Any Multi-Drug Resistant Organisms: None Reported Past Surgical History: Orthopedic Surgery Additional Past Surgical History / Comment(s): lola knee arthrosc.09-27-15 OPEN ILEOCOLECTOMY Past Anesthesia/Blood Transfusion Reactions: No Reported Reaction Past Psychological History: No Psychological Hx Reported Smoking Status: Former smoker Past Alcohol Use History: Occasional Past Drug Use History: None Reported - Past Family History Mother Family Medical History: Cancer Additional Family Medical History / Comment(s): BREAST CANCER Father Family Medical History: Myocardial Infarction ([place]) Additional Family Medical History / Comment(s): MULTIPLE RI'S BEFORE AT AGE 40 Medications and Allergies Home Medications Medication Instructions Recorded Confirmed Type Aspirin 81 mg PO DAILY 07/03/21 08/02/21 Rx Losartan [Cozaar] 25 mg PO DAILY #30 tab 07/03/21 08/02/21 Rx Allergies Allergy/AdvReac Type Severity Reaction Status Date / Time venom-honey bee Allergy Anaphylaxis Verified 08/02/21 15:33 [bee venom (honey bee)] Physical Examination - Vital Signs Vital Signs: Vital Signs Temp Pulse Pulse Resp BP BP Pulse Ox 08/03/21 08:00 68 18 08/03/21 07:20 97.8 F 68 18 124/77 96 08/03/21 07:00 97.8 F 96 18 124/77 96 08/03/21 02:33 97.6 F 66 18 104/67 95 08/02/21 20:00 84 08/02/21 19:18 98.2 F 84 18 134/82 97 08/02/21 17:00 70 16 140/65 95 08/02/21 15:00 78 16 126/84 95 08/02/21 13:14 98.5 F 76 16 114/75 96 Intake and Output 08/02/21 08/03/21 08/03/21 22:59 06:59 14:59 Other: # Voids 1 1 Weight 97.522 kg GENERAL: The patient is lying in bed and is not in acute distress. CHEST: The heart rate is regular rate rhythm. No murmurs to auscultation. LUNG: Clear to auscultation bilaterally no wheezing noted throughout. Not labored breathing. ABDOMEN/GI: Bowel sounds present in all 4 quadrants. No tenderness to palpation throughout. NEUROLOGICAL: Higher mental function: The patient is awake, alert, oriented to self, place and time. Patient is following commands. No aphasia and no neglect. Cranial nerves: The pupils are round, equal and reactive to light and accommodation. Visual bhatt are full to confrontation throughout. Extraocular movement is intact no nystagmus is noted. Facial sensation is normal to touch throughout. The facial strength is normal throughout. Hearing is moderately decreased bilaterally to hand rub. Tongue is midline and moved [id number] without any difficulty. No dysarthria is noted. Shoulder shrug is normal bila terally. Motor: Gait is normal with normal arm swings. The strength is 5 over 5 throughout. Normal tone and bulk. Cerebellum: Normal finger to nose heel to vail bilaterally. Sensation: Sensation is normal to touch throughout. Reflexes (right/left): 2+ throughout.. Plantars are downgoing bilaterally. Results - Laboratory Findings CBC and BMP: 08/02/21 14:05 08/02/21 14:05 Abnormal Lab Findings: Abnormal Labs 08/02/21 08/02/21 08/02/21 13:54 14:05 14:05 BUN 25 H POC Glucose (mg/dL) 106 H Triglycerides 264.00 H VLDL Cholesterol, Calc 52.80 H Assessment and Plan Assessment: Transient ischemic attack (Acute right sided numbness). Etiology is crytpogenic. Left ICA is symptomatic. Cannot rule out cardiemoblic Especially with history of strokes and one in other hemisphere) Recent stroke over left occipital subcortical left frontal on the second week of June 2021 Left ICA stenosis of about 80% which seems symptoms on CTA (has similar presentation last time but carotid duplex was not significant) Old stroke over the right occipital and left cerebellar Plan: I restarted the patient's aspirin 81 mg and will continue Plavix 75mg daily (he did not fail Plavix since was off for past one week). I will load him with Plavix 300mg once. started him on Pravastatin 40mg qhs since could not tolerate lipitor for secondary stroke prophylaxis. Consulted vascular surgery team regarding the left ICA stenosis but he stated will follow-up as outatient He has an appointment with cardiology this thursday and will ask about event monitor reading to rule out A. fib flutter. He does not want to stay in the hospital. Every 4 hours neuro checks On cardiac monitoring PT OT and LONG LINES OPERATOR are consulted We'll defer the rest of medical management to the primary team. Patient needs to follow-up with neurologist as outpatient within 1-2 weeks. For DVT prophylaxis start the patient on subcu heparin 5000 units every 8 hours. The plan is discussed with patient, his (via phone) and nurse. Patient is clear for discharge from neurological perspective. Thank you for the consultation. Jeff Douglass M.D. Neuro-Hospitalist Time with Patient: Greater than 30
[2021-08-03] MEDS ORDERED: CLOPIDOGREL 75 MG TAB PO STA (11:02)
--- NOTE | 2021-08-03 11:43 | P.HPIM ---
History of Present Illness H&P Date: 08/03/21 This is history of physical and discharge summary HISTORY OF PRESENT ILLNESS: This is a 70-year-old male with a previous medical history significant for hypertension and hypertensive cardiovascular disease, hyperlipidemia, history of osteoarthritis of both knees status post arthroscopic knee surgeries, history of significant abdominal surgeries back in September 2015 when he went to have a possible CT-guided biopsy of a mass behind the duodenum that led to an open biopsy that was done by Dr. Watkins patient ended up with significant trouble with septic shock patient ended up getting shipped to [facility] where he underwent a total of 10 surgery initially 5 surgery that led to a big open wound in the abdomen that was treated conservatively followed by a skin graft surgery and then he ended up having a a temporary colostomy with an attempted reversal that led to a bowel perforation patient then ended up having 3 more surgery than he had a skin graft from of big scan dialysis 10th surgery back in 2017, during that time patient was hospitalized multiple times to [facility] with multiple diagnoses including line sepsis as well as septic shocks for different reasons, patient was treated with IV antibiotic as well as IV TPN for long period of time, I have not seen the patient for quite sometimes more than 4 years ago, patient presented to the emergency department at [facility] yesterday after he developed to have a significant right sided upper and lower extremity numbness and a bit of weakness at around 10:30 in the morning that resolved by the time he came to the emergency department he underwent computed tomography scan of the brain that was negative for acute infarct or bleed he did show old right occipital infarct and left cerebellar infarct, this was followed by CTA of the brain and carotid artery and that showed evidence of the moderate stenosis of the left internal carotid artery about 80% stenosis and moderate stenosis of the right internal carotid artery that is similar to the prior and dominant right vertebral arteries, patient was given an aspirin 325 minute gram once every day patient was hospitalized about a month ago at the current [facility] for exact same presentation this is presentation #3 and I believe and actually need to be taken as the patient appears to be symptomatic with a prior history of stroke and that increases risk of massive stroke down the line neurology consultation appreciated as well as vascular surgery consultation REVIElW OF SYSTEMS: Constitutional: No documented fever, no chills, no night sweats. No weight change. No weakness, fatigue or lethargy. No daytime sleepiness. HEENT: No headache. No blurred vision or double vision, no loss of vision. No loss of Hearing, no ringing in the ears, no dizziness. No nasal drainage or congestion. No epistaxis. No sore throat. Lungs: No shortness of breath, no cough, no sputum production. No wheezing. Reports dyspnea with activity. Cardiovascular: No chest pain, no lower extremity edema. No palpitations. No paroxysmal nocturnal dyspnea. No orthopnea. No lightheadedness or dizziness. No syncopal episodes. Abdominal: Reports no abdominal pain. No nausea, vomiting. No diarrhea. No constipation. No bloody or tarry stools reports loss of appetite. Genitourinary: No dysuria, increased frequency, urgency. No urinary retention. Musculoskeletal: No myalgias. No muscle weakness, no gait dysfunction, no frequent falls. No back pain. No neck pain. Integumentary: No wounds, no lesions. No rash or pruritus. No unusual bruising. No change in hair or nails. Neurologic: No aphasia. No facial droop. No change in mentation. No head injury. No headache. No paralysis. Right sided procedure that has resolved by the time he came to the ER. Psychiatric: No depression. No anxiety. No mood swings. Endocrine: No abnormal blood sugars. No weight change. PAST MEDICAL HISTORY: Hypertension and hypertensive cardio vascular disease. Hyperlipidemia. Carotid artery disease. Multiple embolic infarcts Obesity. Multiple line sepsis. History of septic shocks. History of ischemic bowel. PAST SURGICAL HISTORY: 1. Bilateral arthroscopic knee surgery per 2. A total of 10 surgeries for ischemic bowel with perforation and colostomy placement and reversal followed by a pigskin graft placement 3. Multiple PIC line insertion and removal. SOCIAL HISTORY: patient denies a history of smoking, no history of drinking or drug use or abuse. Currently lives with his . FAMILY HISTORY: father at age of 40 after he committed suicide but he had a history of recurrent MIs that made him bedridden at a younger age, mother at age of 82 from metastatic breast cancer, patient has one brother ok, patient has 2 sister one is 66-year-old with a history of breast cancer, The other one is 64-year-old with history of diabetes mellitus type 2. Patient has one son who is 41-year-old with history of psoriasis. PHYSICAL EXAMINATION: General: 70-year-old male a not a bit in no apparent distress. HEENT: Head is atraumatic, normocephalic, pupils were equal round reactive to light and recommendation, extraocular muscle movement were intact, sclera nonicteric, conjunctivae were pale, mucous membranes of the mouth are somewhat dry. Neck: Supple, no JVP, decreased carotid upstroke bilaterally with left carotid bruit, no lymphadenopathy. Chest: Decreased breath sounds at the bases, few rhonchi, no expiratory wheezes, no chest wall tenderness, no intercostal retractions. Heart: First heart sound is normal, second heart sounds normal, there is no gallop or murmur. Abdomen: Soft, nontender, nondistended, multiples surgical scar, there is an area with a a pigskin graft that is very thin individual of the abdomen. Extremities: There is no edema no calf tenderness DP +2 bilaterally. Neurologic examination: Patient is awake alert and oriented X 3, cranial nerves II-12 appear grossly intact, muscle power were 5 out of 5 in upper extremities and 5 out of 5 in bilateral lower extremities, deep tendon reflexes normal bilaterally. ASSESSMENT AND PLAN: 1. TIA in the distribution of the left middle cerebral artery with right sided facial arm and lower extremity numbness. Continue aspirin 81 mg once every day,was seen in consultation by neurology was started on Plavix 75 mg every day as well as pravastatin 40 mg at bedtime., monitor the patient's symptoms is very closely, patient will be seen in consultation by vascular surgery for possible intervention 2 . Moderate carotid artery stenosis in the left ICA that is symptomatic. Consult vascular surgery Dr. Denis. 3. Hypertension and hypertensive cardiovascular disease. Patient blood pressure appears to be appropriate today per 4. Hyperlipidemia. Check lipid panel, start the patient on atorvastatin 80 mg orally once every day. 5. History of complicated abdominal surgery due to ischemic bowel full by bowel perforation and multiple bowel resections with colostomy placement and reversal ended up with a pigskin graft placement with Dr. Gotti at [facility]. 6. Osteoarthritis of both knees status post arthroscopic knee surgery. 7. DVT prophylaxis. Bilateral knee-high GARRETT hose, heparin 5000 units subcutaneously every 12 hours. 8. GI prophylaxis. Protonix 40 mg orally once every day. 9. observation status. 10. Full code. 11. Patient is medically cleared to be discharged follow-up with me in the office next week, follow-up with neurology, follow up with vascular surgery in one week, patient already has an appointment with cardiology on Thursday for stress test on August 14 for evaluation of his Holter monitor. Past Medical History Past Medical History: CVA/TIA Additional Past Medical History / Comment(s): kidney stones. TIA years ago History of Any Multi-Drug Resistant Organisms: None Reported Past Surgical History: Orthopedic Surgery Additional Past Surgical History / Comment(s): lola knee arthrosc.09-27-15 OPEN ILE OCOLECTOMY Past Anesthesia/Blood Transfusion Reactions: No Reported Reaction Past Psychological History: No Psychological Hx Reported Smoking Status: Former smoker Past Alcohol Use History: Occasional Past Drug Use History: None Reported - Past Family History Mother Family Medical History: Cancer Additional Family Medical History / Comment(s): BREAST CANCER Father Family Medical History: Myocardial Infarction ([place]) Additional Family Medical History / Comment(s): MULTIPLE OH'S BEFORE AT AGE 40 Medications and Allergies Home Medications Medication Instructions Recorded Confirmed Type Aspirin 81 mg PO DAILY 07/03/21 08/02/21 Rx Losartan [Cozaar] 25 mg PO DAILY #30 tab 07/03/21 08/02/21 Rx Allergies Allergy/AdvReac Type Severity Reaction Status Date / Time venom-honey bee Allergy Anaphylaxis Verified 08/02/21 15:33 [bee venom (honey bee)] Physical Exam Vitals: Vital Signs Temp Pulse Pulse Resp BP BP Pulse Ox 08/03/21 08:00 68 18 08/03/21 07:20 97.8 F 68 18 124/77 96 08/03/21 07:00 97.8 F 96 18 124/77 96 08/03/21 02:33 97.6 F 66 18 104/67 95 08/02/21 20:00 84 08/02/21 19:18 98.2 F 84 18 134/82 97 08/02/21 17:00 70 16 140/65 95 08/02/21 15:00 78 16 126/84 95 08/02/21 13:14 98.5 F 76 16 114/75 96 Intake and Output 08/02/21 08/03/21 08/03/21 22:59 06:59 14:59 Other: # Voids 1 1 Weight 97.522 kg Results CBC & Chem 7: 08/02/21 14:05 08/02/21 14:05 Labs: Abnormal Lab Results - Last 24 Hours (Table) 08/02/21 08/02/21 08/02/21 Range/Units 13:54 14:05 14:05 BUN 25 H (9-20) mg/dL POC Glucose (mg/dL) 106 H (75-99) mg/dL Triglycerides 264.00 H (0.00-149.00) mg/dL VLDL Cholesterol, Calc 52.80 H (5.00-40.00) mg/dL Thrombosis Risk Factor Assmnt - Choose All That Apply Any of the Below Risk Factors Present?: Yes Each Factor Represents 1 point: Obesity (BMI >25) Other Risk Factors: Yes Each Risk Factor Represents 2 Points: Age 61-74 years Thrombosis Risk Factor Assessment Total Risk Factor Score: 3 Thrombosis Risk Factor Assessment Level: Moderate Risk
[2021-08-03] MEDS ORDERED: HEPARIN SODIUM,PORCINE/PF 5,000 UNIT/0.5 ML SYRINGE SQ SCH (16:00)
[2021-08-03] MEDS ORDERED: PRAVASTATIN SODIUM 40 MG TAB PO SCH (21:00)
[2021-08-03] MEDS ORDERED: ATORVASTATIN 80 MG TAB PO SCH (21:00)
[2021-08-03] MEDS ORDERED: TICAGRELOR 90 MG TAB PO SCH (21:00)
[2021-08-04] MEDS ORDERED: CLOPIDOGREL 75 MG TAB PO SCH (09:00)
== END 2021-08-03 13:20 | disposition home or self-care (01) ==
LOC: EC 12:43 → 6NMEDSUR 16:19
PROVIDERS: ADMIT Internal Medicine; ATTEND Internal Medicine
DX: G45.9 Transient cerebral ischemic attack, unspecified (principal); I11.9 Hypertensive heart disease without heart failure; E78.5 Hyperlipidemia, unspecified; R26.2 Difficulty in walking, not elsewhere classified; M17.0 Bilateral primary osteoarthritis of knee; E66.9 Obesity, unspecified; Z68.29 Body mass index [BMI] 29.0-29.9, adult; Z86.19 Personal history of other infectious and parasitic diseases; Z86.73 Personal history of transient ischemic attack (TIA), and cerebral infarction without residual deficits; Z87.442 Personal history of urinary calculi; Z87.891 Personal history of nicotine dependence; Z79.82 Long term (current) use of aspirin; Z79.899 Other long term (current) drug therapy; Z91.030 Bee allergy status; Z80.3 Family history of malignant neoplasm of breast; Z82.49 Family history of ischemic heart disease and other diseases of the circulatory system; Z81.8 Family history of other mental and behavioral disorders; Z83.3 Family history of diabetes mellitus; Z84.89 Family history of other specified conditions
CPT/HCPCS: 96360; 96361; 99291; 36415; 93005; 80061; 80053; 85025; 85610; 85730; 81003; 80306; 71046; 70496; 70450; 70498; G0378 ×2; Q9967

== ENCOUNTER → 2021-09-13 | Outpatient (CLI) | payer MEDICARE ==
[2021-09-13 17:40] LABS: HCT 46.6 % (39.6-50.0); HGB 15.1 g/dL (13.0-17.0); MCHC 32.4 g/dL (32.0-37.0); MCV 92.6 fL (80.0-97.0); Mean Platelet Volume 10.2 fL (9.5-12.2); NRBC Per 100 WBC 0 /100 WBCS (0.0-0.0); Platelet Count 202 X 10*3/uL (140-440); RBC 5.03 X 10*6/uL (4.40-5.60); RDW 13.2 % (11.5-14.5)
== END | disposition home or self-care (01) ==
LOC: LABPAT 11:07
PROVIDERS: ATTEND Surgery
DX: Z01.812 Encounter for preprocedural laboratory examination (principal)
CPT/HCPCS: 36415; 85027

== ENCOUNTER 2021-09-16 08:25 | Inpatient (IN) | payer MEDICARE ==
[2021-09-12 15:43] VITALS: BMI 28.3
[2021-09-16] MEDS ORDERED: DEXAMETHASONE SOD PHOSPHATE 4 MG/ML 1 ML VIAL IV ONE (09:57)
[2021-09-16] MEDS ORDERED: ONDANSETRON 4 MG/2 ML VIAL IVP ONE (09:57)
[2021-09-16] MEDS ORDERED: HYDROmorphone 0.5 MG/0.5 ML SYRINGE IVP PRN (09:57)
--- NOTE | 2021-09-16 10:22 | P.GSHP ---
History of Present Illness H&P Date: 09/16/21 Chief Complaint: carotid stenosis 70 year old male with history of TIA multiple times with right sided weakness, numbness was worked up with carotid doppler and CTA which demonstrated left carotid artery stenosis greater than 70%. He presents today for CEA on the left. He denies any fevers, chills, chest pain or shortness of breath. - Review of Systems All systems: negative (what is mentioned in the PMH or HPI) Past Medical History Past Medical History: CVA/TIA, Hyperlipidemia, Hypertension Additional Past Medical History / Comment(s): kidney stones. TIA years ago History of Any Multi-Drug Resistant Organisms: None Reported Past Surgical History: Orthopedic Surgery Additional Past Surgical History / Comment(s): lola knee arthrosc.09-27-15 OPEN ILEOCOLECTOMY Past Anesthesia/Blood Transfusion Reactions: No Reported Reaction Additional Past Anesthesia/Blood Transfusion Reaction / Comment(s): no hx blood transfusion Smoking Status: Former smoker - Past Family History Mother Family Medical History: Cancer Additional Family Medical History / Comment(s): BREAST CANCER Father Family Medical History: Myocardial Infarction ([place]) Additional Family Medical History / Comment(s): MULTIPLE IN'S BEFORE AT AGE 40 Medications and Allergies Home Medications Medication Instructions Recorded Confirmed Type Pravastatin Sodium [Pravachol] 40 mg PO HS #90 tab 08/03/21 09/12/21 Rx Aspirin 81 mg PO HS 09/12/21 09/12/21 History Clopidogrel [Plavix] 75 mg PO QAM 09/12/21 09/12/21 History Losartan [Cozaar] 25 mg PO QAM 09/12/21 09/12/21 History Allergies Allergy/AdvReac Type Severity Reaction Status Date / Time venom-honey bee Allergy Anaphylaxis Verified 09/12/21 15:35 [bee venom (honey bee)] Surgical - Exam - General well developed, well nourished, no distress - Eyes PERRL - ENT normal pinna, normal nares - Neck no masses - Respiratory normal expansion, normal respiratory effort - Cardiovascular Rhythm: regular - Abdomen Abdomen: soft, non tender - Integumentary no rash, no growths - Neurologic normal coordination - Psychiatric oriented to time, oriented to person, oriented to place, speech is normal Assessment and Plan Assessment: 1. Left ICA stenosis 2. history of TIA 3. History of right sided weakness Plan: To OR for left CEA with patch angioplasty
[2021-09-16] MEDS: LACTATED RINGERS 1,000 ML IV SCH (10:30)
[2021-09-16] MEDS ORDERED: LIDOCAINE 1% (10MG/ML) FOR IV START INTRADERMA ONE (10:30)
[2021-09-16] MEDS ORDERED: fentaNYL (PF) 50 MCG/ML 2 ML AMP ONE (10:55)
[2021-09-16] MEDS ORDERED: GLYCOPYRROLATE 0.2 MG/ML 2 ML VIAL ONE (10:55)
[2021-09-16] MEDS ORDERED: LIDOCAINE 2% INJ 20 MG/ML (2 ML VIAL) ONE (10:55)
[2021-09-16] MEDS ORDERED: NEOSTIGMINE 1 MG/ML 10 ML VIAL ONE (10:55)
[2021-09-16] MEDS ORDERED: WATER FOR INJECTION, STERILE 10 ML VIAL IV ONE (10:55)
[2021-09-16] MEDS ORDERED: HEPARIN SODIUM,PORCINE 10,000 UNIT/ML 1 ML VIAL ONE (10:55)
[2021-09-16] MEDS ORDERED: MIDAZOLAM 2 MG/2 ML VIAL ONE (10:55)
[2021-09-16] MEDS ORDERED: ROCURONIUM 10 MG/ML (5 ML VIAL) IV ONE (10:55)
[2021-09-16] MEDS ORDERED: PHENYLEPHRINE-0.9% NACL SYG 1,000 MCG/10 ML SYRINGE ONE (10:55)
[2021-09-16] MEDS ORDERED: NITROGLYCERIN-D5W PMX 50 MG/250 ML BOTTLE IV ONE (10:55)
[2021-09-16] MEDS ORDERED: PROPOFOL 10 MG/ML 20 ML VIAL IV ONE (10:55)
[2021-09-16] MEDS ORDERED: SUCCINYLCHOLINE CHLORIDE 200 MG/10 ML VIAL IV ONE (10:55)
[2021-09-16] MEDS ORDERED: LABETALOL 5 MG/ML VIAL MDV ONE (10:55)
[2021-09-16] MEDS ORDERED: LIDOCAINE 1% INJ 10MG/ML (20 ML MDV) SQ ONE (12:00)
[2021-09-16] MEDS ORDERED: THROMBIN (BOVINE) 5,000 UNIT VIAL TOPICAL ONE ×3 (12:01→13:11)
[2021-09-16] MEDS ORDERED: GELATIN SPONGE,ABSORB (LARGE) 1 EACH SPONGE TOPICAL ONE ×3 (12:01→13:11)
[2021-09-16] MEDS ORDERED: ceFAZolin 2 GM in SODIUM CHLORIDE 0.9% 500 ML 500 ML IRRIGATION ONE (12:04)
[2021-09-16] MEDS ORDERED: HEPARIN SODIUM PORCINE IRRIGATION ONE (12:13)
[2021-09-16] MEDS ORDERED: SODIUM CHLORIDE 0.9% IRRIGATION ONE (12:13)
[2021-09-16] MEDS ORDERED: LACTATED RINGERS 1,000 ML IV ONE (13:21)
[2021-09-16] MEDS ORDERED: BENZOCAINE/MENTHOL LOZENG 1 EACH LOZENGE MUCOUS MEM PRN (13:38)
[2021-09-16] MEDS ORDERED: MORPHINE SULFATE 2 MG/ML SYRINGE IVP PRN (13:38)
[2021-09-16] MEDS ORDERED: ACETAMINOPHEN TAB 325 MG TAB PO PRN (13:38)
[2021-09-16] MEDS ORDERED: HYDROcodone/APAP 5-325MG 1 EACH TAB PO PRN (13:38)
[2021-09-16] MEDS ORDERED: TRIMETHOBENZAMIDE 100 MG/ML 2 ML VIAL IM PRN (13:38)
[2021-09-16] MEDS ORDERED: MAG HYDROX/AL HYDROX/SIMETH 30 ML CUP PO PRN (13:38)
--- NOTE | 2021-09-16 13:38 | P.OP ---
Description of Procedure: Date of Procedure: 09/16/2021 Preoperative Diagnosis: Left Internal carotid artery stenosis >70% Postoperative Diagnosis: Same Procedure(s) Performed: Left carotid endarterectomy with patch angioplasty Anesthesia: FLORENTINO Surgeon: Froilan Denis Estimated Blood Loss (ml): 75 Pathology: Left carotid plaque Condition: stable Disposition: PACU Indications for Procedure: 70-year-old gentleman with history of TIAs with right upper extremity weakness and numbness presented to the hospital for left carotid endarterectomy after CTA and ultrasounds demonstrated greater than 70% stenosis of the left internal carotid artery. Description of Procedure: After written informed consent was obtained the patient all risks benefits and competitions were described the patient is brought to the operative suite and laid in a supine position. The area of the neck was prepped and draped in usual sterile fashion after appropriate anesthetic was performed per the anesthesiologist. A timeout was performed in normal fashion antibiotics were administered prior to incision. An oblique incision was then created just anterior to the sternocleidomastoid musculature with a 10 blade scalpel and dissection was carried down to the carotid sheath. The carotid sheath was then entered after facial vein was located and suture ligated in normal fashion. The common carotid, internal carotid, external carotid and superior thyroid arteries were located and dissected free in a meticulous fashion circumferentially and controlled with vessel loops. Attention was then placed to locating the vagus nerve as well as hypoglossal nerve which were both spared. Once controlled patient was administered heparin and followed with ACTs for appropriate heparinization. Once ACT was above 200 the proximal and distal aspects of the dissection were then controlled with vascular clamps. Arteriotomy was then created with 11 blade scalpel and extended with Rowe Vallejo scissors. Utilizing pressure tubing stump pressures were obtained and were 64/40. No shunt was required and endarterectomy was then performed with a Willard and elevator. The plaque was then feathered at the distal aspect and the internal carotid artery and removed. The area was copiously irrigated with heparinized saline and all free debris was removed. A 7-0 Prolene suture was then placed to tack the distal aspect of the dissection at the internal carotid artery. A 0.8 x 8 cm bovine pericardial patch was then chosen and patch angioplasty was performed with 6-0 Prolene suture in a running fashion. Prior to last sutures being placed the inflow was released flushing any free debris out of the patch. This was reclamped and the internal carotid artery was released revealing good brisk flow and was once again reclamped. The external carotid and superior thyroid artery were then released followed by the common carotid artery to allow any free debris to be flushed into the external system. Final sutures were placed and secured. Internal carotid artery control was then released. Good pulsatile flow was noted through the patch and a Doppler was utilized demonstrating good brisk flow into the internal, external carotid arteries without any signs of obstruction. Hemostasis was then assured with Gelfoam and thrombin. A 10-Uzbek JOHN drain was then placed in normal fashion and secured with 3-0 nylon suture. The incision was then closed in a multilayer fashion after hemostasis was assured. The skin was then cleansed and dressings were placed. Patient tolerated the procedure well and was following commands and moving all extremities. Patient was then sent to PACU for recovery.
--- NOTE | 2021-09-16 17:26 | CONS ---
CONSULTATION REASON FOR CONSULTATION: Advice regarding hypertension, hyperlipidemia, requested by Dr. Denis. HISTORY OF PRESENT ILLNESS: This 70-year-old gentleman with a past medical history of hypertension, hyperlipidemia, underwent left carotid endarterectomy and patch angioplasty by Dr. Denis. There is no history of any fever, rigors, chills. The patient is slightly drowsy after surgery. PAST MEDICAL HISTORY: History of hypertension, hyperlipidemia and multiple medical problems. HOME MEDICATIONS: Reviewed. They include Plavix . Doses and the rest of the medications are reviewed. ALLERGIES: HONEY BEE VENOM. Family history, social history, review of systems could not be taken because of the postoperative drowsiness. PHYSICAL EXAMINATION: Pulse 75, blood pressure 126/50, respiration 16. NECK: Status post left carotid endarterectomy. CARDIOVASCULAR: S1, S2 normal. RESPIRATION: Clear to auscultation. ABDOMEN: Soft, nontender. LEGS: No edema. No swelling. Nervous system could not be examined. SKIN: No ulcer, rash, bleeding. JOINTS: No active deforming arthropathy. LABS: The preoperative labs are reviewed. ASSESSMENT: 1. Status post left carotid endarterectomy. 2. Hypertension. 3. Hyperlipidemia. RECOMMENDATIONS AND DISCUSSION: In this 70-year-old gentleman who presented after surgery, I would recommend resuming the home medication. Monitor blood pressure closely. Otherwise, DVT prophylaxis. Incentive spirometry. Will follow the patient closely with you. The patient may be asked to follow closely with Dr. Poe after discharge. Thank you, Dr. Denis. MMCORRYL / MARQUISN: [id number] / MTDD
[2021-09-16 19:00] LABS: Basophils % (A) 0 %; Eosinophils # (A) 0.1 k/uL (0-0.7); Eosinophils % (A) 1 %; HGB 14.6 gm/dL (13.0-17.5); Lymphocytes # (A) 0.4 k/uL (1.0-4.8); Lymphocytes % (A) 4 %; MCH 30.1 pg (25.0-35.0); MCHC 31.7 g/dL (31.0-37.0); MCV 95.1 fL (80.0-100.0); Mean Platelet Volume 7.2; Monocytes # (A) 0.3 k/uL (0-1.0); Monocytes % (A) 3 %; Neutrophils # (A) 9.9 k/uL (1.3-7.7); Neutrophils % (A) 92 %; Platelet Count 177 k/uL (150-450); RBC 4.84 m/uL (4.30-5.90); RDW 12.9 % (11.5-15.5); WBC 10.7 k/uL (3.8-10.6)
[2021-09-16] MEDS ORDERED: ASPIRIN 81 MG PO SCH (21:00)
[2021-09-16] MEDS ORDERED: PRAVASTATIN SODIUM 40 MG TAB PO SCH (21:00)
[2021-09-17] MEDS: LACTATED RINGERS 1,000 ML IV SCH ×3 (06:27→11:57)
[2021-09-17] MEDS ORDERED: CLOPIDOGREL 75 MG TAB PO SCH (09:00)
[2021-09-17] MEDS ORDERED: ENOXAPARIN 40 MG/0.4 ML SYRINGE SQ SCH (09:00)
[2021-09-17] MEDS ORDERED: LOSARTAN 25 MG TAB PO SCH (09:00)
--- NOTE | 2021-09-17 09:17 | P.DS ---
Providers Date of admission: 09/16/21 09:35 Expected date of discharge: 09/17/21 Attending physician: Froilan Denis DO Consults: 09/16/21 13:38 Consult Physician Routine Consulting Provider: Sukhdeep Poe Consult Reason/Comments: medical management Do you want consulting provider notified?: Yes Primary care physician: Sukhdeep Poe Hospital Course: This is a 70-year-old male with a history of multiple TIAs with right-sided weakness numbness who had a carotid Doppler and CTA which demonstrated left carotid artery stenosis greater than 70%. He presented yesterday for carotid endarterectomy with patch angioplasty. He is postop day #1. He had no acute changes through the night. He denies any shortness of breath, chest pain, fevers chills, or focal deficits. His Powers catheter was removed this morning. He is to get up and ambulate. He is tolerating a regular diet. He has no difficulty with swallowing. JOHN drain with approximately 10 mL's of serosanguineous drainage. JOHN drain removed. She has now been up and ambulating, has voided 3 since Powers catheter was discontinued. Will plan for discharge. Exam: General appearance: The patient is alert, oriented, appears in no acute distress. HET: Head is normocephalic and atraumatic. Pupils are equal and reactive. Neck: Supple without lymphadenopathy. Trachea midline. Left side of neck with incision well approximated minimal swelling. JOHN drain intact with approximately 10 mL's of serosanguineous drainage. Heart: S1 S2. Regular rate and rhythm. Lungs: Clear to auscultation bilaterally. Abdomen: Soft, nontender, nondistended. Extremities: Normal skin color and turgor. Neurological: No focal deficits. Strength and sensation are grossly intact. The impression and plan of care has been dictated as directed. Dr. Denis I performed a history and examination of this patient, discussed the same with the dictator. I agree with the dictator's note ,documented as a scribe. Any additional findings or plans will be noted. Procedures: Procedure(s) Performed: Left carotid endarterectomy with patch angioplasty Patient Condition at Discharge: Stable Plan - Discharge Summary Discharge Rx Participant: No New Discharge Prescriptions: Continue Pravastatin Sodium [Pravachol] 40 mg PO HS #90 tab Aspirin 81 mg PO HS Losartan [Cozaar] 25 mg PO QAM Clopidogrel [Plavix] 75 mg PO QAM Discharge Medication List Pravastatin Sodium [Pravachol] 40 mg PO HS #90 tab 08/03/21 [Rx] Aspirin 81 mg PO HS 09/12/21 [History] Clopidogrel [Plavix] 75 mg PO QAM 09/12/21 [History] Losartan [Cozaar] 25 mg PO QAM 09/12/21 [History] Follow up Appointment(s)/Referral(s): Arnaud James [NON-STAFF] - Froilan Denis DO [STAFF PHYSICIAN] - 1 Week Patient Instructions/Handouts: Carotid Endarterectomy (DC) Activity/Diet/Wound Care/Special Instructions: No driving for two-three days. Avoid heavy lifting greater than 10 lbs , pushing, pulling, straining, flights of stairs for three days. ok to shower tomorrow but no baths, pools, soaking in tubs for seven days to avoid risk of infection. signs of infection ie: fever, rash, drainage from incision site, swelling contact doctor or return to ER immediately. Heavy bleeding from incision site apply firm direct pressure and return to ER. Do not attempt to drive self. low sodium/low fat diet Discharge Disposition: HOME SELF-CARE
[2021-09-17 09:31] VITALS: RESP 20
[2021-09-17 11:43] VITALS: BP 130/73; PULSE 65; TEMP 98.1
--- NOTE | 2021-09-17 14:31 | PN ---
PROGRESS NOTE DATE OF SERVICE: 09/17/2021 This 70-year-old gentleman who was admitted after left carotid enterectomy is improving significantly. No chest pain. No palpitations. No fever. PHYSICAL EXAMINATION: Pulse 67, blood pressure 119/69, respiration 20. HEENT: Conjunctivae normal. Neck: No JVD. Cardiovascular: S1, S2. Respirations: Breath sounds diminished in the bases. No rhonchi. No crackles. Abdomen: Soft. Nervous System: No focal deficits. Neck is status post carotid surgery. LABS: Noted. ASSESSMENT: 1. Status post left carotid endarterectomy. 2. Hypertension. 3. Hyperlipidemia. DISCUSSION AND RECOMMENDATIONS: Continue current medications, management and symptomatic treatment. DVT prophylaxis. Resume the home medications. Follow with the primary physician after discharge. The rest of the recommendations per vascular surgery. MMODL / IJN: [id number] /
== END 2021-09-17 13:11 | disposition home or self-care (01) | DRG 39 ==
LOC: 2ORMAIN 09:35 → 3SCARD 16:17
PROVIDERS: ADMIT Surgery; ATTEND Surgery
PROC: 03UL0KZ Supplement Left Internal Carotid Artery with Nonautologous Tissue Substitute, Open Approach (ICD-10-PCS; principal; 2021-09-16 11:30)
PROC: 03CL0ZZ Extirpation of Matter from Left Internal Carotid Artery, Open Approach (ICD-10-PCS; principal; 2021-09-16 11:30)
DX: I65.22 Occlusion and stenosis of left carotid artery (principal); E78.5 Hyperlipidemia, unspecified; I10 Essential (primary) hypertension; R53.1 Weakness; Z79.82 Long term (current) use of aspirin; Z79.02 Long term (current) use of antithrombotics/antiplatelets; Z79.899 Other long term (current) drug therapy; Z87.891 Personal history of nicotine dependence; Z87.442 Personal history of urinary calculi; Z86.73 Personal history of transient ischemic attack (TIA), and cerebral infarction without residual deficits; Z91.030 Bee allergy status; Z80.3 Family history of malignant neoplasm of breast; Z82.49 Family history of ischemic heart disease and other diseases of the circulatory system
CPT/HCPCS: 85025; 86850; 86870; 86880; 86900; 86901; 86902; 88304; 88305; 88311

== ENCOUNTER → 2022-12-03 | Outpatient (CLI) | payer MEDICARE ==
--- NOTE | 2022-12-03 11:00 | XR ---
EXAM TYPE: LUMBAR SPINE X RAY SERIES COMPARISON: NONE HISTORY: Pain TECHNIQUE: 4 views are submitted. FINDINGS: Alignment is anatomic. The pedicles are intact. The transverse processes are intact. There is a 6 mm calcification left upper quadrant. Metallic sutures are seen. There is hypertrophic degenerative c hange of the spine with multilevel facet arthropathy. Atherosclerotic change aorta. One anterolisthes is of L4-5. Left-sided sacroiliitis. IMPRESSION: 1. Moderate multilevel degenerative disc disease and facet arthropathy with grade 1 anterolisthesis L 4-L5. 2. Suspect is upper quadrant calcification. 3. Left-sided sacroiliitis.
[2022-12-03 12:41] LABS: Appearance,Urine Clear (Clear); Bilirubin,Urine Negative (Negative); Blood,Urine Large (Negative); Color,Urine Yellow; Glucose,Urine (UA) Negative (Negative); Ketones,Urine Negative (Negative); Leukocyte Esterase,Urine Small (Negative); Mucus,Urine Many /hpf; Nitrite,Urine Negative (Negative); PH, Urine 5.5 (5.0-8.0); Protein,Urine Trace (Negative); RBC,Urine 60 /hpf (0-5); Specific Gravity,Urine 1.031 (1.001-1.035); Urobilinogen,Urine <2.0 mg/dL (<2.0); WBC,Urine 9 /hpf (0-5)
[2022-12-03 15:40] LABS: Basophils # (A) 0.07 X 10*3/uL (0.00-0.10); Basophils % (A) 1.1 %; Eosinophils # (A) 0.14 X 10*3/uL (0.04-0.35); Eosinophils % (A) 2.2 %; HCT 48.1 % (39.6-50.0); HGB 15.9 d/dL (13.0-17.0); Lymphocytes # (A) 1.09 X 10*3/uL (0.90-5.00); Lymphocytes % (A) 17.1 %; MCHC 33.1 d/dL (32.0-37.0); MCV 93.8 FL (80.0-97.0); Mean Platelet Volume 10.5 FL (9.5-12.2); Monocytes # (A) 0.67 X 10*3/uL (0.20-1.00); Monocytes % (A) 10.5 %; NRBC Per 100 WBC 0 X 10*3/uL (0.00-0.01); Neutrophils # (A) 4.37 X 10*3/uL (1.80-7.70); Neutrophils % (A) 68.5 %; Platelet Count 196 X 10*3/uL (140-440); RBC 5.13 X 10*6/uL (4.40-5.60); RDW 12.8 % (11.5-14.5); WBC 6.38 X 10*3/uL (4.50-10.00)
[2022-12-03 16:34] LABS: ALT 16 U/L (10-49); AST 27 U/L (14-35); Albumin 4.5 d/dL (3.8-4.9); Albumin/Globulin Ratio 2.25 Ratio (1.60-3.17); Alkaline Phosphatase 55 U/L (41-126); BUN/Creat Ratio 24.12 Ratio (12.00-20.00); Blood Urea Nitrogen 19.3 mg/dL (9.0-27.0); Calcium 9.6 mg/dL (8.7-10.3); Carbon Dioxide 24.5 mmol/L (21.6-31.8); Chloride 105 mmol/L (96-109); Chol/HDL Ratio 3.82 Ratio; Glucose 99 mg/dL (70-110); LDL Cholesterol,Calculated 91.8 mg/dL (0.0-131.0); Potassium 4.5 mmol/L (3.5-5.5); Sodium 140 mmol/L (135-145); Total Protein 6.5 d/dL (6.2-8.2); Uric Acid 5.9 mg/dL (3.7-8.7)
== END | disposition home or self-care (01) ==
LOC: LABWHC1 10:04
PROVIDERS: ATTEND Internal Medicine
DX: M43.16 Spondylolisthesis, lumbar region (principal); M46.1 Sacroiliitis, not elsewhere classified; I10 Essential (primary) hypertension; E78.2 Mixed hyperlipidemia; M47.816 Spondylosis without myelopathy or radiculopathy, lumbar region
CPT/HCPCS: 36415; 72100; 80053; 80061; 81001; 83036; 83735; 84443; 84550; 85025

== ENCOUNTER → 2022-12-15 | Outpatient (CLI) | payer MEDICARE ==
--- NOTE | 2022-12-15 12:14 | CT ---
EXAMINATION TYPE: CT urogram wo/w con CT DLP: 3289.20 mGycm, Automated exposure control for dose reduction was used. DATE OF EXAM: 12/15/2022 11:42 AM COMPARISON: CT chest abdomen pelvis 10/02/2015 CLINICAL INDICATION:Male, 71 years old with history of R31.9 HEMATURIA; PHH, Hematuria TECHNIQUE: Urogram of the abdomen and pelvis was performed before and after the administration of 100 cc of IV c ontrast Isovue 300 contrast. Delayed imaging was performed. Coronal and sagittal reformats were perfo rmed. One or more CT dose reduction strategies were utilized during this examination. 2D and 3D recon structions are performed to assist visualization of the urinary tract on a separate workstation. FINDINGS: GENITOURINARY: RIGHT KIDNEY AND URETER: Approximately 4 nonobstructive right renal calculi with largest measuring up to 4 mm. 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 No hydronephr osis or hydroureter. No renal mass or other lesions. No urothelial lesions: no filling defect, dilati on, stricture or wall thickening. LEFT KIDNEY AND URETER: Approximately 3 nonobstructive left renal calculi with largest measuring up t o 9 mm. There is a 6 mm calculus within the renal pelvis. No hydronephrosis or hydroureter. No renal mass or other lesions. No urothelial lesions: no filling defect, dilation, stricture or wall thickeni ng. URINARY BLADDER: Moderately well distended. Normal, no calculi, mass or other lesions. REPRODUCTIVE: Enlarged prostate gland measuring 5.5 cm in transverse dimension.. ABDOMEN LIVER: Unremarkable. GALLBLADDER AND BILE DUCTS: Gallstones identified. No biliary duct dilatation. PANCREAS: Unremarkable. SPLEEN: Unremarkable. ADRENAL GLANDS: Unremarkable. STOMACH AND BOWEL: Small hiatal hernia. Postsurgical changes from partial colectomy. No evidence of b owel obstruction. PERITONEUM: No evidence of pneumoperitoneum, free fluid, or adenopathy.. Peritoneal mice is identifi ed measuring up to 1.4 cm (series 5, image 148) VASCULATURE: Atherosclerotic calcifications are present throughout the abdominal aorta and its branch es. No abdominal aortic aneurysm. Ectasia of the infrarenal abdominal aorta measuring up to 2.9 cm. MUSCULOSKELETAL: Multilevel degenerative changes are present throughout the thoracolumbar spine. No a cute osseous abnormality. No aggressive osseous lesion. SOFT TISSUE/ABDOMINAL WALL: Bilateral fat filled inguinal hernias. LOWER CHEST: Ascending thoracic aortic aneurysm measuring up to 4.4 cm. Moderate arterial calcificati ons. There are 2 adjacent pulmonary nodules within the right lower lobe measuring up to 5 mm. IMPRESSION: 1. No evidence of renal/urothelial neoplasm. 2. Nonobstructive bilateral renal calculi with a 6 mm calculus within the left renal pelvis. 3. Ectasia of the infrarenal abdominal aorta measuring up to 2.9 cm. Bilateral fat filled inguinal hernias. 4. Ascending thoracic aortic aneurysm measuring up to 4.4 cm. 5. Cholelithiasis. 6. Prostatomegaly. 7. There are 2 adjacent pulmonary nodules within the right lower lobe measuring up to 5 mm. In a low- risk patient, no follow-up is recommended. In a high-risk patient consider optional CT chest in 12 mo nths.
== END | disposition home or self-care (01) ==
LOC: RADCTMAIN 09:06
PROVIDERS: ATTEND Internal Medicine
DX: N20.0 Calculus of kidney (principal); K40.20 Bilateral inguinal hernia, without obstruction or gangrene, not specified as recurrent; I71.21 Aneurysm of the ascending aorta, without rupture; K80.20 Calculus of gallbladder without cholecystitis without obstruction; N40.0 Benign prostatic hyperplasia without lower urinary tract symptoms; R91.8 Other nonspecific abnormal finding of lung field; R31.9 Hematuria, unspecified
CPT/HCPCS: 74178; 74400; Q9967

== ENCOUNTER → 2023-01-14 | Outpatient (CLI) | payer MEDICARE ==
[2023-01-14 17:18] LABS: BUN/Creat Ratio 17.38 Ratio (12.00-20.00); Basophils # (A) 0.07 X 10*3/uL (0.00-0.10); Basophils % (A) 1.3 %; Blood Urea Nitrogen 13.9 mg/dL (9.0-27.0); Calcium 9.8 mg/dL (8.7-10.3); Carbon Dioxide 28.7 mmol/L (21.6-31.8); Chloride 104 mmol/L (96-109); Eosinophils # (A) 0.14 X 10*3/uL (0.04-0.35); Eosinophils % (A) 2.5 %; Glucose 98 mg/dL (70-110); HCT 47.7 % (39.6-50.0); Lymphocytes # (A) 0.95 X 10*3/uL (0.90-5.00); Lymphocytes % (A) 17.2 %; MCH 31.2 pg (27.0-32.0); MCHC 33.5 g/dL (32.0-37.0); Mean Platelet Volume 10.1 FL (9.5-12.2); Monocytes # (A) 0.57 X 10*3/uL (0.20-1.00); Monocytes % (A) 10.3 %; NRBC Per 100 WBC 0 X 10*3/uL (0.00-0.01); Neutrophils # (A) 3.76 X 10*3/uL (1.80-7.70); Neutrophils % (A) 68.2 %; Platelet Count 206 X 10*3/uL (140-440); Potassium 5.3 mmol/L (3.5-5.5); RBC 5.13 X 10*6/uL (4.40-5.60); RDW 12.6 % (11.5-14.5); Sodium 141 mmol/L (135-145); WBC 5.52 X 10*3/uL (4.50-10.00)
[2023-01-14 18:31] LABS: Appearance,Urine Clear (Clear); Bilirubin,Urine Negative (Negative); Blood,Urine Moderate (Negative); Color,Urine Yellow (Yellow); Ketones,Urine Negative (Negative); Nitrite,Urine Negative (Negative); PH, Urine 5.5; Specific Gravity,Urine 1.017 (1.001-1.030); Urobilinogen,Urine 0.2 E.U./DL
[2023-01-14 18:50] LABS: Bacteria,Urine 1+ (None Seen)
== END | disposition home or self-care (01) ==
LOC: LABPAT 08:28
PROVIDERS: ATTEND Urology
DX: Z01.812 Encounter for preprocedural laboratory examination (principal); R31.29 Other microscopic hematuria
CPT/HCPCS: 36415; 80048; 81001; 85025; 87086

== ENCOUNTER → 2023-01-20 | Day surgery (SDC) | payer MEDICARE, OTHER ==
[2023-01-13 15:14] VITALS: BMI 29.5
[~2023-01-20] MED LIST: DEXAMETHASONE SOD PHOSPHATE 4 MG/ML 1 ML VIAL IV ONE; GENTAMICIN 440 MG in SODIUM CHLORIDE 0.9% 100 ML IVPB PRN; GLYCOPYRROLATE 0.2 MG/ML 2 ML VIAL ONE; HYDROmorphone 0.5 MG/0.5 ML SYRINGE IVP PRN; KETOROLAC 15 MG/ML 1 ML VIAL ONE; LACTATED RINGERS 1,000 ML IV ONE; LACTATED RINGERS 1,000 ML IV SCH; LIDOCAINE 1% INJ 10MG/ML (20 ML MDV) ONE; MEPERIDINE 50 MG/ML SYRINGE IVP ONE; MIDAZOLAM 2 MG/2 ML VIAL IV PRN; NEOSTIGMINE 1 MG/ML 10 ML VIAL ONE; ONDANSETRON 4 MG/2 ML VIAL IVP ONE; PHENYLEPHRINE 10 MG/ML VIAL ONE; PROPOFOL 10 MG/ML 20 ML VIAL IV ONE; ROCURONIUM 10 MG/ML (5 ML VIAL) IV ONE; SUCCINYLCHOLINE CHLORIDE 200 MG/10 ML VIAL IV ONE; WATER FOR INJECTION, STERILE 10 ML VIAL IV ONE; fentaNYL (PF) 50 MCG/ML 2 ML AMP ONE
--- NOTE | 2023-01-20 14:56 | XR ---
EXAMINATION TYPE: XR KUB DATE OF EXAM: 01/20/2023 COMPARISON: 07/29/2010. HISTORY: Pain TECHNIQUE: One view abdominal series FINDINGS: Hypertrophic and degenerative change of the spine. Calcifications in the pelvis likely likely lie out side the system. The bowel gas pattern is nonspecific. Previous surgery noted in the right upper q uadrant. Right kidney: Linear mid pole right-sided renal calculus measuring diameter of 2 mm.. Left kidney: There are 2 larger calcifications seen involving the upper and mid pole measuring approx imately 7 mm within the largest. More punctate sub-5 mm left renal hilum calcifications totaling in n umber of approximately three. IMPRESSION: 1. Bilateral nephrolithiasis.
--- NOTE | 2023-01-20 16:34 | P.HPIHPCON ---
History of Present Illness H&P Date: 01/20/23 Chief Complaint: Bilateral renal stones This is a 72-year-old male with history of a 6 mm left-sided renal pelvis stone, to 9 mm left-sided renal stone. He also has right-sided renal stones, all smaller than 4 mm. Discussed with him given the location within the renal pelv is I do recommend proceeding surgical intervention. Discussed the option of left-sided ureteroscopy with holmium laser versus using the ESWL. Risk-benefit and rationale of each approach was discussed in detail. Of note he also has been having right flank pain and wanted to address his right-sided renal stones. Discussed with him the stones are nonobstructive and there is potential that he will have persistent pain even with stone removal. He understood all the risk and agreed to proceed with a bilateral ureteroscopy with holmium laser. Aware of the risk which includes but not limited to bleeding, infection, injury to the ureter Consent for Procedure: I have explained the operation/procedure to the patient, including the risks, benefits, side effects, alternative therapies (including not receiving the proposed treatment or service), the likelihood of the patient achieving his/her goals, and potential recuperation problems for the procedure/sedation/analgesia, as well as any blood products, if indicated. I also explained to the patient the risks, benefits and side effects of the alternatives, as well as the risks related to not receiving the proposed procedure, care, treatment, or services. Past Medical History Past Medical History: CVA/TIA, Hyperlipidemia Additional Past Medical History / Comment(s): Hip, back and thigh pain. Hx kidney stones 20 yrs ago and currently. Hx multiple TIA, last in 2021. History of Any Multi-Drug Resistant Organisms: None Reported Past Surgical History: Bowel Resection, Orthopedic Surgery Additional Past Surgical History / Comment(s): Bilateral knee arthroscopy, 09-27-15 OPEN ILEOCOLECTOMY, colostomy with later reversal, left carotid endarerectomy 09/16/21, bilateral cataract surgery. Past Anesthesia/Blood Transfusion Reactions: No Reported Reaction Additional Past Anesthesia/Blood Transfusion Reaction / Comment(s): No blood transfusions. Past Psychological History: No Psychological Hx Reported Smoking Status: Former smoker Past Alcohol Use History: Occasional Additional Past Alcohol Use History / Comment(s): SMOKED FROM AGE 15 TO 18. Past Drug Use History: None Reported - Past Family History Mother Family Medical History: Cancer Additional Family Medical History / Comment(s): BREAST CANCER. Father Family Medical History: Myocardial Infarction (DE) Additional Family Medical History / Comment(s): MULTIPLE DE'S BEFORE AT AGE 40. Medications and Allergies Home Medications Medication Instructions Recorded Confirmed Type Pravastatin Sodium [Pravachol] 40 mg PO HS #90 tab 08/03/21 01/20/23 Rx Aspirin 81 mg PO HS 09/12/21 01/20/23 History Clopidogrel [Plavix] 75 mg PO QAM 09/12/21 01/20/23 History Aleve (Unknown Dose) 1 tab PO DIRECTED PRN 01/13/23 01/20/23 History Allergies Allergy/AdvReac Type Severity Reaction Status Date / Time venom-honey bee Allergy Anaphylaxis Verified 01/20/23 14:55 [bee venom (honey bee)] Surgical - Exam Vital Signs Temp Pulse Resp BP Pulse Ox 97.3 F L 72 16 157/93 98 01/20/23 15:08 01/20/23 15:08 01/20/23 15:08 01/20/23 15:08 01/20/23 15:08 - General no distress, moderate pain - Eyes normal ocular movement, no pale - ENT normal nares, normal mucosa - Respiratory normal expansion, normal respiratory effort - Abdomen Abdomen: soft, non tender Assessment and Plan Assessment: OR for bilateral ureteroscopy, holmium laser lithotripsy, stone basketing and stent insertion
--- NOTE | 2023-01-20 18:27 | P.OP ---
Date of Procedure: 01/20/23 Preoperative Diagnosis: Bilateral renal stones Postoperative Diagnosis: Same Procedure(s) Performed: Cystoscopy, bilateral ureteroscopy, holmium laser lithotripsy, stone basketing and stent insertions Implants: 6-South Korean by 26 cm stent to the bilateral ureter Anesthesia: FLORENTINO Surgeon: Dejon Davidson Estimated Blood Loss (ml): 10 Pathology: other (bilateral renal stone) Condition: stable Disposition: PACU Indications for Procedure: This is a 72-year-old male with history of a 6 mm left-sided renal pelvis stone, to 9 mm left-sided renal stone. He also has right-sided renal stones, all smaller than 4 mm. Discussed with him given the location within the renal pelvis I do recommend proceeding surgical intervention. Discussed the option of left-sided ureteroscopy with holmium laser versus using the ESWL. Risk-benefit and rationale of each approach was discussed in detail. Of note he also has been having right flank pain and wanted to address his right-sided renal stones. Discussed with him the stones are nonobstructive and there is potential that he will have persistent pain even with stone removal. He understood all the risk and agreed to proceed with a bilateral ureteroscopy with holmium laser. Aware of the risk which includes but not limited to bleeding, infection, injury to the ureter Operative Findings: 3 large stones in the left kidney, one in the renal pelvis within the upper pole and in the midpole. Small stone in the upper pole of the right kidney, additional stone in the lower pole of the right kidney, of note there was a duplicated system on the right Description of Procedure: Patient brought to the operating room, general anesthesia was induced. He was prepped and draped in sterile fashion and placed in dorsal lithotomy position. Cystoscopy fitted with a 21-[place] Korean sheath was inserted per urethra, cystoscopy was performed which showed no abnormality within the bladder. of note patient did have an enlargment of the medial lobe with slight intravesical extension. This time attention was carried to the left ureteral orifice which was intubated with a sensor wire. Next under fluoroscopy 1113 [place] access sheath was passed over the wire into the proximal ureter. Next a flexible ureteroscope was inserted through the access sheath, renoscopy was performed which showed a large stone in the renal pelvis and 2 additional stones one in the upper and one in the midpole. Using the holmium laser the stones were dusted, sizable stone fragments were removed using the stone basket. Of note there was significant amount of dust in the left kidney which limited visualization. But on renoscopy and on fluoroscopy I did not see any sizable fragments. There was no radiopaque densities on fluoroscopy. At this time pullback ureteroscopy was performed wh ich showed no ureteral stones, along the mid ureter there was slight separation of the mucosa, but no evidence of ureteral perforation. As the ureteroscope was withdrawn, a sensor wire was advanced through. Next a ureteral stent was passed over the wire, proximal curl was on fluoroscopy and the distal curl was was visualized using the cystoscopy. This time attention was carried to the right side which was intubated with a sensor wire. Next an 1113 [place] access sheath was passed over the wire and into the proximal ureter. The flexibile ureteroscope was inserted through the access sheath, of note there was a duplicated system on the right and both units met at the proximal ureter. There was a small stone in the upper moiety which was dusted using the holmium laser, there was an additional stones in the lower moiety which was fragmented, into 2 pieces and both pieces were grasped using the stone basket. Repeat renoscopy showed no sizable stones fragments or injury to the kidney, there was no radiopaque densities. This time pullback ureteroscopy was performed which showed no ureteral stones or injury to the ureter, as ureteroscope was withdrawn a sensor wire was advanced through. Next a ureteral stent was passed over the wire, the proximal curl was visualized on fluoroscopy and the distal curl was visualized using the cystoscope. The bladder was emptied at the end of the case. Patient tolerated procedure well was taken to recovery in stable condition
[2023-01-20 18:53] VITALS: TEMP 97
[2023-01-20 19:20] VITALS: RESP 16
[2023-01-20 19:47] VITALS: BP 154/88; PULSE 63
--- NOTE | 2023-01-21 07:24 | FL ---
Intraoperative/procedural fluoroscopic services were provided. Total fluoroscopy time is 49.5 seconds with a total of 2 submitted images to PACS. Please see the operative/procedural note for further det ails. DAP: 7.0923 Gycm2
== END ==
LOC: OR 14:33
PROVIDERS: ATTEND Urology
DX: N20.0 Calculus of kidney (principal); E78.5 Hyperlipidemia, unspecified; F10.90 Alcohol use, unspecified, uncomplicated; Z86.73 Personal history of transient ischemic attack (TIA), and cerebral infarction without residual deficits; Z87.891 Personal history of nicotine dependence; Z79.82 Long term (current) use of aspirin; Z79.899 Other long term (current) drug therapy
CPT/HCPCS: 82365; 74018; 52356; C2625; C1769; J0330; J2710; J2175; J2001; J3010; J1580; J1885; J2704; J2371

== ENCOUNTER → 2024-03-01 | Outpatient (CLI) | payer MEDICARE, OTHER ==
[2024-03-01 15:48] LABS: Basophils # (A) 0.06 X 10*3/uL (0.00-0.10); Basophils % (A) 0.8 %; Eosinophils # (A) 0.17 X 10*3/uL (0.04-0.35); Eosinophils % (A) 2.2 %; HCT 49.8 % (39.6-50.0); HGB 16.2 g/dL (13.0-17.0); Lymphocytes # (A) 1.34 X 10*3/uL (0.90-5.00); Lymphocytes % (A) 17.1 %; MCH 30.5 pg (27.0-32.0); MCHC 32.5 g/dL (32.0-37.0); MCV 93.6 FL (80.0-97.0); Monocytes # (A) 0.75 X 10*3/uL (0.20-1.00); Monocytes % (A) 9.6 %; NRBC Per 100 WBC 0 X 10*3/uL (0.00-0.01); Neutrophils # (A) 5.46 X 10*3/uL (1.80-7.70); Neutrophils % (A) 69.7 %; Platelet Count 236 X 10*3/uL (140-440); RBC 5.32 X 10*6/uL (4.40-5.60); WBC 7.83 X 10*3/uL (4.50-10.00)
[2024-03-01 16:07] LABS: ALT 18 U/L (10-49); AST 25 U/L (14-35); Albumin 4.7 g/dL (3.8-4.9); Albumin/Globulin Ratio 1.96 Ratio (1.60-3.17); Alkaline Phosphatase 71 U/L (41-126); Blood Urea Nitrogen 14.4 mg/dL (9.0-27.0); Calcium 9.6 mg/dL (8.7-10.3); Carbon Dioxide 27.9 mmol/L (21.6-31.8); Chloride 101 mmol/L (96-109); Chol/HDL Ratio 3.59 Ratio; Globulin 2.4 g/dL (1.6-3.3); Glucose 96 mg/dL (70-110); LDL Cholesterol,Calculated 109.7 mg/dL (0.0-131.0); Potassium 4.4 mmol/L (3.5-5.5); Prostate Specific Antigen 6.82 ng/mL (0.000-6.500); Sodium 140 mmol/L (135-145); Total Protein 7.1 g/dL (6.2-8.2)
== END | disposition home or self-care (01) ==
LOC: LABWHC1 10:26
PROVIDERS: ATTEND Internal Medicine
DX: I10 Essential (primary) hypertension (principal); E78.2 Mixed hyperlipidemia; R73.03 Prediabetes; R31.9 Hematuria, unspecified; R97.20 Elevated prostate specific antigen [PSA]
CPT/HCPCS: 36415; 80053; 80061; 83036; 83735; 84153; 84443; 85025

== ENCOUNTER → 2024-03-10 | Outpatient (CLI) | payer MEDICARE, OTHER ==
--- NOTE | 2024-03-10 21:58 | MR ---
EXAMINATION TYPE: MR brain wo/w con DATE OF EXAM: 03/10/2024 9:10 PM COMPARISON: 07/02/2021 CLINICAL INDICATION: Male, 73 years old with history of R42, extreme dizziness, falling, lose of pato nce, nausous TECHNIQUE: Multiplanar, multiecho imaging on a 3.0 Sudha magnet is performed through the brain. Stud y is performed within 24 hours of arrival to the hospital.Multiplanar, multiecho imaging on a 3.0 Heike la magnet is performed through the knee. IV Contrast: 9ml mL Gadobutrol (None, if empty) FINDINGS: The craniovertebral junction is normal. The pituitary is normal. Diffusion-weighted imaging is performed. No abnormal hyperintensity is present to suggest an acute i ntracranial infarct or acute ischemic change. Periventricular white matter hyperintensity is present likely on the basis of chronic white matter is chemic change. Some subcortical white matter changes are within the centrum semiovale bilaterally. Th is may be greater on the right There appears be an old infarct through the inferior left cerebellum. Old right occipital lobe infarc t is present. Ventricles and sulci are appropriate for the patient age. Following contrast administration no abnormal enhancement is evident. Mild mucosal thickening is present through the maxillary sinuses and some ethmoid air cells. IMPRESSION: 1. 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 2. Chronic appearing periventricular white matter ischemic change and subcortical white matter change s. 3. Examination appears stable from the comparison [facility], , 03/10/2024 9:55 PM
== END | disposition home or self-care (01) ==
LOC: RADMRIMAIN 20:15
PROVIDERS: ATTEND Internal Medicine
DX: I67.82 Cerebral ischemia (principal); R42 Dizziness and giddiness
CPT/HCPCS: 70553; A9585

== ENCOUNTER 2024-05-19 12:26 | Emergency (ER) | payer MEDICARE, OTHER ==
[2024-05-19 12:30] VITALS: PULSE 85
--- NOTE | 2024-05-19 13:04 | ED ---
Skin/Abscess/FB HPI - General Source: patient, RN notes reviewed Mode of arrival: ambulatory Limitations: no limitations <Mara Love - Last Filed: 05/19/24 18:46> <Eneida Padgett - Last Filed: 05/20/24 11:46> - General Chief complaint: Skin/Abscess/Foreign Body Stated complaint: Wound issue Time Seen by Provider: 05/19/24 12:39 - History of Present Illness Initial comments: This is a 73-year-old male who presents to the emergency department for concerns of the incision on his abdomen opening. Patient had surgery at [facility] in 2018 and had a complicated clinical course and prolonged healing process. States that a week and a half ago he noticed that the incision on his abdomen seemed to be opening up and draining fluid. A couple of days ago it scabbed over and it has not drained since. Believes that this may have been triggered by applying neosporin. Denies any pain, nausea/vomiting, fever/chills, or diarrhea/constipation. His states that she called his surgeon at [facility] and they recommended he come here for further evaluation, potentially with a CT scan and general surgery evaluation. (Mara Love) - Related Data Home Medications Medication Instructions Recorded Confirmed Aspirin 81 mg PO HS 09/12/21 01/20/23 Clopidogrel [Plavix] 75 mg PO QAM 09/12/21 01/20/23 Aleve (Unknown Dose) 1 tab PO DIRECTED PRN 01/13/23 01/20/23 Previous Rx's Medication Instructions Recorded Pravastatin Sodium [Pravachol] 40 mg PO HS #90 tab 08/03/21 Cephalexin [Keflex] 500 mg PO Q8HR #15 cap 01/20/23 Ketorolac [Toradol] 10 mg PO Q6HR PRN #15 tab 01/20/23 Allergies Allergy/AdvReac Type Severity Reaction Status Date / Time venom-honey bee Allergy Anaphylaxis Verified 05/19/24 12:30 [bee venom (honey bee)] Review of Systems ROS Other: All systems not noted in ROS Statement are negative. <Mara Love - Last Filed: 05/19/24 18:46> ROS Other: All systems not noted in ROS Statement are negative. <Eneida Padgett - Last Filed: 05/20/24 11:46> ROS Statement: Those systems with pertinent positive or pertinent negative responses have been documented in the HPI. Past Medical History Past Medical History: CVA/TIA, Hyperlipidemia Additional Past Medical History / Comment(s): Hip, back and thigh pain. Hx kidney stones 20 yrs ago and currently. Hx multiple TIA, last in 2021. History of Any Multi-Drug Resistant Organisms: None Reported Past Surgical History: Bowel Resection, Orthopedic Surgery Additional Past Surgical History / Comment(s): Bilateral knee arthroscopy, 8-4-1 6 OPEN ILEOCOLECTOMY, colostomy with later reversal, left carotid endarerectomy 09/16/21, bilateral cataract surgery. Past Anesthesia/Blood Transfusion Reactions: No Reported Reaction Additional Past Anesthesia/Blood Transfusion Reaction / Comment(s): No blood transfusions. Past Psychological History: No Psychological Hx Reported Smoking Status: Former smoker Past Alcohol Use History: Occasional Past Drug Use History: None Reported - Past Family History Mother Family Medical History: Cancer Additional Family Medical History / Comment(s): BREAST CANCER. Father Family Medical History: Myocardial Infarction (OR) Additional Family Medical History / Comment(s): MULTIPLE OR'S BEFORE AT AGE 40. <Mara Love - Last Filed: 05/19/24 18:46> General Exam Limitations: no limitations General appearance: alert, in no apparent distress Head exam: Present: atraumatic, normocephalic, normal inspection Respiratory exam: Present: normal lung sounds bilaterally. Absent: respiratory distress, wheezes, rales, rhonchi, stridor Cardiovascular Exam: Present: regular rate, normal rhythm, normal heart sounds. Absent: systolic murmur, diastolic murmur, rubs, gallop, clicks GI/Abdominal exam: Present: soft, normal bowel sounds, other (Vertical abdominal incision with well-healing scabs on the superior and inferior aspect of the incision. There is no drainage. There is no surrounding erythema, warmth, or tenderness.). Absent: distended, tenderness Neurological exam: Present: alert, oriented X3, CN II-XII intact Psychiatric exam: Present: normal affect, normal mood <Mara Love - Last Filed: 05/19/24 18:46> Course Vital Signs 05/19/24 05/19/24 12:27 13:40 Temperature 98.0 F 98.6 F Pulse Rate 85 85 Respiratory 17 18 Rate Blood Pressure 133/77 126/85 O2 Sat by Pulse 96 99 Oximetry Medical Decision Making <Mara Love - Last Filed: 05/19/24 18:46> <Eneida Padgett - Last Filed: 05/20/24 11:46> - Medical Decision Making This is a 73-year-old male who presents to the emergency department for concerns with his abdominal incision. Was pt. sent in by a medical professional or institution? @ -No Did you speak to anyone other than the patient for history? @ -No Did you review nursing and triage notes? @ -Yes, and I agree, it is accurate with regards to the patient's symptoms. Were old charts reviewed? @ -No Differential Diagnosis? @ -Cellulitis, abrasion, abscess, this is not meant to be an all-inclusive list. EKG interpreted by me (3pts min.)? @ -Not obtained X-rays interpreted by me (1pt min.)? @ -Not obtained CT interpreted by me (1pt min.)? @ -Not obtained U/S interpreted by me (1pt. min.)? @ -Not obtained What testing was considered but not performed? (CT, X-rays, U/S, labs)? Why? @ -None What meds were considered but not given? Why? @ -No Did you discuss the management of the patient with other professionals? @ -No Did you reconcile home meds? @ -No Was smoking cessation discussed for >3mins.? @ -No Was critical care preformed (if so, how long)? @ -No Were there social determinants of health that impacted care today? How? (Homelessness, low income, unemployed, alcoholism, drug addiction, transportation, low edu. Level, literacy, decrease access to med. care, usp, rehab)? @ -No Was there de-escalation of care discussed even if they declined? (Discuss DNR or withdrawal of care, Hospice)? @ -No What co-morbidities impacted this encounter? (DM, HTN, Smoking, COPD, CAD, Cancer, CVA, Hep., AIDS, mental health diagnosis, sleep apnea, morbid obesity)? @ -None Was patient admitted / discharged? @ -Discharged. When I first went to examine the patient, the scar on his abdomen was not particularly alarming. He had a scab on the top and bottom portion that were in the process of healing and there was no active drainage. Dr. Padgett, ED attending, evaluated the patient at bedside along with me. In- depth discussion took place with the patient and his family in that his abdominal exam was benign. He was not exhibiting any discomfort or systemic symptoms. The incision was also otherwise intact without any active drainage or signs of infection. We did not feel a CT scan or lab work were indicated at this point and would not provide any useful information. We also advised that we do not want to remove the scab and interrupt the healing process. Dr. Padgett kindly offered to call and speak with his surgeon, however his advised that she was on vacation and did not want us to call her. Advised in the meantime that the patient just continue to monitor this and keep it covered with a bandage. We discussed avoiding exposure in the sunlight as well. Return parameters discussed including the draining starting up again, abdominal pain, constipation, or fevers/chills. Patient and his expressed understanding and were discharged home in stable condition. Return precautions reviewed in depth, the patient is instructed to return to the emergency department with any new, worsening, or concerning symptoms. Patient verbalized understanding. Undiagnosed new problem with uncertain prognosis? @ -None Drug Therapy requiring intensive monitoring for toxicity (Heparin, Nitro, Insulin, Cardizem)? @ -None Were any procedures done? @ -None Diagnosis/symptom? @ -Scabs on abdominal incision Acute, or Chronic, or Acute on Chronic? @ -Acute Uncomplicated (without systemic symptoms) or Complicated (systemic symptoms)? @ -Uncomplicated Side effects of treatment? @ -None Exacerbation, Progression, or Severe Exacerbation] @ -Not applicable Poses a threat to life or bodily function? @ -No (Mara Love) As above, pt is a 73 y/o gentleman presenting for concern for opening of his post-surgical scar. Abdominal surgery was performed weeks ago at [facility]. Pt and state they noticed clear fluid leaking from it so pt's states she was able to contact the pt's surgeon via the surgeon's "hospital cell phone" this morning and they were directed to come to the emergency department for labs, CT scan, and transfer to [facility] or be admitted here for consult w/ Dr. Yanez. Of note, no pictures of pt's abdomen were sent to pt's surgeon. I examined pt's abdomen and surgical scar w/ Mara. There is a well healing ex-lap scar with well formed scar tissue and two small linear scabs (one 0.5 cm long and one 1.5 cm long) interspersed between scar tissue. There was no active exudates or erythema, even when abdomen is palpated. Abdomen was thoroughly examined and showed active bowel sounds throughout, and no TTP, masses, palpable hernias, distention or peritoneal signs. The pt denies any systemic symptoms including fevers, N/V/D or constipation. We discussed w/ pt and reassuring exam, signs and symptoms and that imaging and labs were not indicated at this point. I did offer to speak w/ pt's surgeon so that I could discuss w/ her pt's exam and evaluation here however pt's refused to provide surgeon's phone number because the pt's surgeon is now on vacation. Of note, pt further provided that he first noted the clear drainage from around the surgical site 1.5 weeks ago after applying bacitracin to the area and his symptoms have improved over the last 1-2 days. He also notes that he has been chopping and carrying wood and working out. I discussed w/ the pt the importance of avoiding lifting any objects over 5 lbs, and avoiding bending, lifting or twisting activities until site is completely healed. Pt verbalized understanding and was agreeable w/ plan for discharge home. He was directed to follow up closely with his surgeon for recheck as soon as possible. (Eneida Padgett) Disposition Is patient prescribed a controlled substance at d/c from ED?: No Time of Disposition: 13:04 <Mara Love - Last Filed: 05/19/24 18:46> <Eneida Padgett - Last Filed: 05/20/24 11:46> Clinical Impression: History of laparotomy, Scar of abdominal wall Disposition: HOME SELF-CARE Additional Instructions: Return to the emergency department with any new, worsening, or concerning symptoms, especially if this starts to leak again, you develop pain, or fevers. Keep the wound covered and avoid picking at the scabs. Leave the scabs intact and they will fall off on their own. Follow-up with your surgeon. Referrals: Sukhdeep Poe MD [Primary Care Provider] - 1-2 days
[2024-05-19 13:52] VITALS: BP 126/85; RESP 18; TEMP 98.6
== END 2024-05-19 13:40 | disposition home or self-care (01) ==
LOC: EC 12:26
DX: L90.5 Scar conditions and fibrosis of skin (principal); Z98.890 Other specified postprocedural states; Z87.891 Personal history of nicotine dependence; Z91.030 Bee allergy status
CPT/HCPCS: 99282

== ENCOUNTER → 2024-06-16 | Outpatient (CLI) | payer MEDICARE, OTHER ==
[2024-06-16 15:03] LABS: Basophils # (A) 0.06 X 10*3/uL (0.00-0.10); Basophils % (A) 0.7 %; Eosinophils % (A) 2.4 %; HCT 45.4 % (39.6-50.0); Lymphocytes # (A) 1.27 X 10*3/uL (0.90-5.00); Lymphocytes % (A) 15.5 %; MCH 30.8 pg (27.0-32.0); MCV 93.2 FL (80.0-97.0); Mean Platelet Volume 10.1 FL (9.5-12.2); Monocytes # (A) 0.82 X 10*3/uL (0.20-1.00); NRBC Per 100 WBC 0 X 10*3/uL (0.00-0.01); Neutrophils # (A) 5.84 X 10*3/uL (1.80-7.70); Neutrophils % (A) 71.2 %; Platelet Count 212 X 10*3/uL (140-440); RBC 4.87 X 10*6/uL (4.40-5.60); RDW 12.5 % (11.5-14.5); WBC 8.21 X 10*3/uL (4.50-10.00)
[2024-06-16 20:15] LABS: ALT 19 U/L (10-49); AST 27 U/L (14-35); Albumin 4.4 g/dL (3.8-4.9); Alkaline Phosphatase 69 U/L (41-126); BUN/Creat Ratio 20.38 Ratio (12.00-20.00); Blood Urea Nitrogen 16.3 mg/dL (9.0-27.0); Calcium 9.4 mg/dL (8.7-10.3); Carbon Dioxide 24.3 mmol/L (21.6-31.8); Chloride 106 mmol/L (96-109); Chol/HDL Ratio 3.55 Ratio; Globulin 2.2 g/dL (1.6-3.3); Glucose 100 mg/dL (70-110); LDL Cholesterol,Calculated 80.5 mg/dL (0.0-131.0); Potassium 4.2 mmol/L (3.5-5.5); Sodium 142 mmol/L (135-145); Total Bilirubin 0.9 mg/dL (0.3-1.2); Total Protein 6.6 g/dL (6.2-8.2); Uric Acid 5.3 mg/dL (3.7-8.7)
== END | disposition home or self-care (01) ==
LOC: LABWHC1 11:14
PROVIDERS: ATTEND Internal Medicine
DX: Z00.00 Encounter for general adult medical examination without abnormal findings (principal); I10 Essential (primary) hypertension; E78.2 Mixed hyperlipidemia; N20.0 Calculus of kidney
CPT/HCPCS: 36415; 80053; 80061; 83036; 83735; 83970; 84443; 84550; 85025

== ENCOUNTER → 2024-08-01 | Outpatient (CLI) | payer MEDICARE, OTHER | END | disposition home or self-care (01) | LOC: LABWHC1 11:58 | PROVIDERS: ATTEND Urology | DX: R97.20 Elevated prostate specific antigen [PSA] (principal) | CPT/HCPCS: 36415; 84153 ==

== ENCOUNTER → 2024-09-05 | Outpatient (CLI) | payer MEDICARE, OTHER ==
--- NOTE | 2024-09-05 08:11 | MR ---
EXAMINATION TYPE: MR Prostate wo/w con DATE OF EXAM: 09/05/2024 8:02 AM COMPARISON: None. CLINICAL INDICATION: Male, 73 years old with history of R97.20 ELEVATED PROSTATE SPECIFIC ANTIGEN [PS A]; Elevated PSA. TECHNIQUE: Multi-planar, multi-sequence imaging of the pelvis is performed prior to and following the uncomplicated administration of bolus intravenous gadolinium. IV Contrast: 9 mL Gadobutrol Interpretive Criteria: PI-RADS v2.1 SERUM PSA: 04/2024=6.04, 07/2024=6.92 SURGICAL PATHOLOGY: No data available. FINDINGS: Prostatic dimensions: 5.0 x 5.5 x 3.9 cm. Ellipsoid Volume:56.16 (PSA density=0.12 ng/mL/mL) CENTRAL GLAND (Central and Transition Zones/CZ+TZ): Multiple bilateral, heterogenous appearing hypertrophic stromal nodules, without suspicious lesion. M edian lobe hypertrophy with protrusion into the base of the bladder. (PI-RADS 2) PERIPHERAL ZONE (PZ): Bilateral linear, indistinct wedgelike areas of low ADC, and low T2 signal, No evidence of masslike a bnormality, or localized perfusional hypervascularity, to further suggest a focus of clinically signi ficant prostate cancer. (PI-RADS 2) SEMINAL VESICLES (SV): Symmetric and unremarkable. PERIPROSTATIC TISSUES: Unremarkable. LYMPH NODES: No enlarged pelvic lymph node. REMAINING PELVIS: Bladder wall is within normal limits given distention. No abnormal free or organized intrapelvic fluid collection. No pathologic bowel dilation or mural thickening. Bilateral fat containing inguinal hernias. OSSEOUS STRUCTURES: No suspicious osseous abnormality. IMPRESSION: 1. No specific features for high-risk prostate cancer. Maximum PI-RADS score: 2. 2. Moderate BPH, estimated gland volume 56.16 (PSA density=0.12 ng/mL/mL) 3. No suspicious osseous lesion. No lymphadenopathy. No evidence of prostate adenocarcinoma involving the periprostatic tissues. [facility], , 09/05/2024 8:08 AM
== END | disposition home or self-care (01) ==
LOC: RADMRIMAIN 06:51
PROVIDERS: ATTEND Urology
DX: N40.0 Benign prostatic hyperplasia without lower urinary tract symptoms (principal); R97.20 Elevated prostate specific antigen [PSA]
CPT/HCPCS: 72197; A9585